=== PATIENT | female | born 1955 | race Caucasian/White ===

== ENCOUNTER 2016-08-10 20:03 | Inpatient (IN) | payer BC ==
[~2016-08-10] VITALS: Ht 172.7 cm; Wt 57.6 kg
[2016-08-10] MEDS ORDERED: CATAPRES0.1 MG ORAL (20:07)
[2016-08-10] MEDS ORDERED: Morphine Sulfate 4mg/ml Inj IVP ONE (20:30)
--- NOTE | 2016-08-10 20:56 | Emergency Room Report ---
History of Present Illness General Chief Complaint: Abdominal Pain Source: Patient Present Illness HPI Patient presents by paramedics for complaints of general weakness Patient reports that in May and July she had repeat UTIs She is seeing a kidney specialist she reports that her left kidneys not working well and has stents in the right kidney Patient reports that now over the past several days she was feeling very weak She felt like she had lower suprapubic abdominal pain as well And as she continued to deteriorate called paramedics she had some questionable mild chills Denies any flank pain at this time denies any vomiting or diarrhea Allergies: Coded Allergies: No Known Allergies (Unverified , 08/10/16) Patient History Past Medical History: see triage record Pertinent Family History: none Now: No Reviewed Nursing Documentation: PMH: Agreed, PSxH: Agreed Nursing Documentation-PMH Hx Hypertension: Yes Hx Cancer: Yes - Cervical CA Review of Systems All Other Systems: negative except mentioned in HPI Physical Exam Vital Signs Date Time Temp Pulse Resp B/P Pulse Ox O2 Delivery O2 Flow Rate FiO2 08/10/16 20:03 97.7 112 16 124/70 100 Room Air Sp02 EP Interpretation: reviewed, normal General Appearance: no apparent distress Head: normocephalic, atraumatic Eyes: bilateral eye EOMI, bilateral eye PERRL ENT: hearing grossly normal, TMs + canals normal, uvula midline, dry mucus membranes, other - Patient has poor dentition Neck: full range of motion, supple, no meningismus, no bony tend Respiratory: lungs clear, normal breath sounds, no rhonchi, no respiratory distress, no retraction, no accessory muscle use Cardiovascular #1: normal peripheral pulses, regular rate, rhythm, no edema, no gallop, no JVD, no murmur Gastrointestinal: normal bowel sounds, soft, no mass, no organomegaly, non- distended, no guarding, no hernia, no pulsatile mass, no rebound, tenderness - Over the suprapubic area Genitourinary: no CVA tenderness Musculoskeletal: normal inspection Neurologic: oriented x3, responsive, special education supervisor III-XII nml as tested, motor strength/ tone normal, sensory intact Psychiatric: mood/affect normal Skin: palpation normal, other - Patient appears poorly kept, fingernails appear dirty Lymphatic: normal inspection, no adenopathy Medical Decision Making Diagnostic Impression: Primary Impression: Sepsis Additional Impressions: UTI (urinary tract infection) Renal failure Hyperkalemia ER Course Patient is a fairly complex patient with multiple differential to consideration including but not limited to cardiac cardiopulmonary and vascular emergencies Patient also reports significant kidney disease cannot provide full specifics however she stated that she had stenting in the right kidney Patient's CAT scan is also abnormal with significant findings Patient's blood work is abnormal including abnormal kidney function infected urine this is extremity concerning patient initiated on antibiotics and requiring higher level of care inpatient admission Labs Test 08/10/16 20:47 08/11/16 09:15 08/12/16 06:56 08/13/16 06:20 White Blood Count 16.0 K/UL (4.8-10.8) 11.1 K/UL (4.8-10.8) 10.5 K/UL (4.8-10.8) Red Blood Count 2.48 M/UL (4.20-5.40) 1.78 M/UL (4.20-5.40) 3.33 M/UL (4.20-5.40) Hemoglobin 7.2 G/DL (12.0-16.0) 5.1 G/DL (12.0-16.0) 9.8 G/DL (12.0-16.0) Hematocrit 23.7 % (37.0-47.0) 16.7 % (37.0-47.0) 29.2 % (37.0-47.0) Mean Corpuscular Volume 96 FL (80-99) 94 FL (80-99) 88 FL (80-99) Mean Corpuscular Hemoglobin 28.9 PG (27.0-31.0) 28.6 PG (27.0-31.0) 29.4 PG (27.0-31.0) Mean Corpuscular Hemoglobin Concent 30.2 G/DL (32.0-36.0) 30.5 G/DL (32.0-36.0) 33.6 G/DL (32.0-36.0) Red Cell Distribution Width 15.6 % (11.6-14.8) 15.9 % (11.6-14.8) 14.9 % (11.6-14.8) Platelet Count 974 K/UL (150-450) 671 K/UL (150-450) 461 K/UL (150-450) Mean Platelet Volume 4.2 FL (6.5-10.1) 4.3 FL (6.5-10.1) 4.9 FL (6.5-10.1) Neutrophils (%) (Auto) % (45.0-75.0) % (45.0-75.0) % (45.0-75.0) Lymphocytes (%) (Auto) % (20.0-45.0) % (20.0-45.0) % (20.0-45.0) Monocytes (%) (Auto) % (1.0-10.0) % (1.0-10.0) % (1.0-10.0) Eosinophils (%) (Auto) % (0.0-3.0) % (0.0-3.0) % (0.0-3.0) Basophils (%) (Auto) % (0.0-2.0) % (0.0-2.0) % (0.0-2.0) Differential Total Cells Counted 100 100 100 Neutrophils % (Manual) 77 % (45-75) 91 % (45-75) 87 % (45-75) Lymphocytes % (Manual) 16 % (20-45) 4 % (20-45) 9 % (20-45) Monocytes % (Manual) 4 % (1-10) 4 % (1-10) 1 % (1-10) Eosinophils % (Manual) 0 % (0-3) 1 % (0-3) 0 % (0-3) Basophils % (Manual) 0 % (0-2) 0 % (0-2) 0 % (0-2) Band Neutrophils 3 % (0-8) 0 % (0-8) 3 % (0-8) Other Cell Type Pathologist comment Platelet Estimate Increased Increased Adequate Platelet Morphology Normal Normal Normal Polychromasia 1+ Hypochromasia 2+ 2+ 1+ Anisocytosis 2+ 1+ 1+ Prothrombin Time 11.0 SEC (9.30-11.50) 11.3 SEC (9.30-11.50) 11.5 SEC (9.30-11.50) Prothromb Time International Ratio 1.1 (0.9-1.1) 1.1 (0.9-1.1) 1.1 (0.9-1.1) Activated Partial Thromboplast Time 38 SEC (23-33) 36 SEC (23-33) 36 SEC (23-33) Urine Color Brown Urine Appearance Cloudy Urine pH 8 (4.5-8.0) Urine Specific [place] 1.010 (1.005-1.035) Urine Protein 3+ (NEGATIVE) Urine Glucose (UA) Negative (NEGATIVE) Urine Ketones 1+ (NEGATIVE) Urine Occult Blood 5+ (NEGATIVE) Urine Nitrite Negative (NEGATIVE) Urine Bilirubin Negative (NEGATIVE) Urine Urobilinogen Normal MG/DL (0.0-1.0) Urine Leukocyte Esterase 3+ (NEGATIVE) Urine RBC 15-20 /HPF (0 - 2) Urine WBC 10-15 /HPF (0 - 2) Urine Squamous Epithelial Cells None /LPF (NONE/OCC) Urine Bacteria Many /HPF (NONE) Sodium Level 128 mEQ/L (135-145) 134 mEQ/L (135-145) 138 mEQ/L (135-145) 137 mEQ/L (135-145) Potassium Level 5.5 mEQ/L (3.4-4.9) 3.7 mEQ/L (3.4-4.9) 3.0 mEQ/L (3.4-4.9) 2.5 mEQ/L (3.4-4.9) Chloride Level 90 mEQ/L (98-107) 97 mEQ/L (98-107) 101 mEQ/L (98-107) 97 mEQ/L (98-107) Carbon Dioxide Level 9 mEQ/L (20-30) 13 mEQ/L (20-30) 13 mEQ/L (20-30) 15 mEQ/L (20-30) Anion Gap 29 (5-15) 24 (5-15) 24 (5-15) 25 (5-15) Blood Urea Nitrogen 118 mg/dL (7-23) 107 mg/dL (7-23) 96 mg/dL (7-23) 94 mg/dL (7-23) Creatinine 6.6 mg/dL (0.5-0.9) 5.5 mg/dL (0.5-0.9) 5.6 mg/dL (0.5-0.9) 5.5 mg/dL (0.5-0.9) Estimat Glomerular Filtration Rate 6.5 mL/min (>60) 7.9 mL/min (>60) 7.8 mL/min (>60) 7.9 mL/min (>60) Glucose Level 134 mg/dL (74-106) 159 mg/dL (74-106) 111 mg/dL (74-106) 106 mg/dL (74-106) Lactic Acid Level 1.70 mmol/L (0.66-2.22) Calcium Level 9.6 mg/dL (8.6-10.2) 7.7 mg/dL (8.6-10.2) 7.9 mg/dL (8.6-10.2) 7.8 mg/dL (8.6-10.2) Total Bilirubin 0.3 mg/dL (0.0-1.2) 0.2 mg/dL (0.0-1.2) 0.5 mg/dL (0.0-1.2) 0.4 mg/dL (0.0-1.2) Aspartate Amino Transf (AST/SGOT) 7 U/L (5-40) 6 U/L (5-40) 8 U/L (5-40) 9 U/L (5-40) Alanine Aminotransferase (ALT/SGPT) 5 U/L (3-33) 5 U/L (3-33) 5 U/L (3-33) 5 U/L (3-33) Alkaline Phosphatase 100 U/L (35-104) 72 U/L (35-104) 70 U/L (35-104) 84 U/L (35-104) Total Creatine Kinase 14 U/L (26-140) Total Protein 8.1 g/dL (6.6-8.7) 5.9 g/dL (6.6-8.7) 6.0 g/dL (6.6-8.7) 5.7 g/dL (6.6-8.7) Albumin 3.5 g/dL (3.5-5.2) 2.6 g/dL (3.5-5.2) 2.5 g/dL (3.5-5.2) 2.3 g/dL (3.5-5.2) Globulin 4.6 g/dL 3.3 g/dL 3.5 g/dL 3.4 g/dL Albumin/Globulin Ratio 0.7 (1.0-2.7) 0.7 (1.0-2.7) 0.7 (1.0-2.7) 0.6 (1.0-2.7 ) Lipase 219 U/L (< 60) Erythrocyte Sedimentation Rate 153 MM/HR (0-30) Reticulocyte Count 2.4 % (0.0-2.0) Iron Level 26 ug/dL (37-145) Total Iron Binding Capacity 140 ug/dL (250-400) Percent Iron Saturation 19 % (15-50) Unsaturated Iron Binding 114 ug/dL (112-346) Ferritin 611 ng/mL (13-150) Lactate Dehydrogenase 100 U/L (135-230) Carcinoembryonic Antigen 4.9 ng/mL Vitamin B12 Level 1424 pg/mL (211-946) Folate 2.7 ng/mL (>3.0) Phosphorus Level 6.9 mg/dL (2.5-4.8) 7.2 mg/dL (2.5-4.8) Magnesium Level 1.8 mg/dL (1.7-2.5) Uric Acid 8.2 mg/dL (3.0-7.5) EKG Diagnostic Results Rate: normal Rhythm: NSR ST Segments: no acute changes Rhythm Strip Diag. Results EP Interpretation: yes Rate: 77 Rhythm: NSR, no PVC's, no ectopy Chest X-Ray Diagnostic Results EP Interpretation: Yes Findings: no consolidation, no effusion, no pneumothorax Number of Views: 1 CT/MRI/US Diagnostic Results CT/MRI/US Diagnostic Results : Impression CT abdomen pelvisImpression: Right nephroureteral stent in place. Moderate to severe right hydronephrosis, despite this, likely indicative of stent malfunction. Some renal parenchymal loss indicates that hydronephrosis is long-standing Severe left hydronephrosis and hydroureter. Point of obstruction of the distal ureter appears to be just proximal to the ureterovesical junction, etiology uncertain as no mass or stone is demonstrated. Hydronephrosis is obviously long-standing, as there is severe renal parenchymal loss. Bladder wall thickening and perivesical inflammatory change, suggestive of cystitis. If there has been prior radiation, and some or all of the pelvic inflammatory change could be due to such. Hepatic cysts incidentally noted Probable 16 mm right ovarian cyst Lumbar scoliotic deformity and considerable secondary degenerative change Pulmonary hyperinflation, suspect COPD progressed severe lumbar scoliotic deformity This agrees with the preliminary interpretation provided overnight by Dr. Johnson Last Vital Signs Date Time Temp Pulse Resp B/P Pulse Ox O2 Delivery O2 Flow Rate FiO2 08/10/16 20:03 97.7 112 16 124/70 100 Room Air Status: improved Disposition: ADMITTED INPATIENT Condition: Serious CHELA DOMINGUEZ D.O. Aug 10, 2016 20:55
[2016-08-10 21:13] LABS: APPEARANCE,URINE CLOUDY; KETONES,URINE 1+ (NEGATIVE); LEUKOCYTE ESTERASE ,URINE 3+ (NEGATIVE); NITRITE,URINE NEGATIVE (NEGATIVE); PH,URINE 8 (4.5-8.0); PROTEIN,URINE 3+ (NEGATIVE); UROBILINOGEN,URINE NORMAL MG/DL (0.0-1.0)
[2016-08-10 21:17] LABS: INR 1.1 (0.9-1.1)
[2016-08-10 21:26] LABS: MEAN CORPUSCULAR HEMOGLOBIN 28.9 PG (27.0-31.0); MEAN CORPUSCULAR HGB CONC 30.2 G/DL (32.0-36.0); MEAN CORPUSCULAR VOLUME 96 FL (80-99); MEAN PLATELET VOLUME 4.2 FL (6.5-10.1); PLATELET COUNT 974 K/UL (150-450); RED BLOOD COUNT 2.48 M/UL (4.20-5.40); RED CELL DISTRIBUTION WIDTH 15.6 % (11.6-14.8)
[2016-08-10 21:29] LABS: ALANINE AMINOTRANSFERASE 5 U/L (3-33); ALBUMIN/GLOBULIN RATIO 0.7 (1.0-2.7); ASPARTATE AMINO TRANSFERASE 7 U/L (5-40); CALCIUM 9.6 mg/dL (8.6-10.2); CHLORIDE 90 mEQ/L (98-107); CREATININE 6.6 mg/dL (0.5-0.9); GLOMERULAR FILTRATION RATE 6.5 mL/min (>60); HEMOLYSIS 0; LIPASE 219 U/L (< 60); POTASSIUM 5.5 mEQ/L (3.4-4.9); SODIUM 128 mEQ/L (135-145); TOTAL PROTEIN 8.1 g/dL (6.6-8.7)
[2016-08-10 21:35] LABS: BACTERIA,URINE MANY /HPF; RBC,URINE 15-20 /HPF (0 - 2)
[2016-08-10 21:50] LABS: ANION GAP 29 (5-15); CARBON DIOXIDE 9 mEQ/L (20-30)
[2016-08-10] MEDS ORDERED: Sodium Bicarbonate 8.4% 50ml Carp IV ONE (22:00)
[2016-08-10] MEDS ORDERED: cefTRIAXone 1 GM in NS 55 ML IVPB ONE (22:00)
[2016-08-10] MEDS ORDERED: Sodium Polystyrene Sulfonate 15gm Powder ORAL ONE (22:00)
[2016-08-10 22:21] LABS: ANISOCYTOSIS 2+; BAND NEUTROPHILS % (MANUAL) 3 % (0-8); HYPOCHROMASIA 2+; LYMPHOCYTES % (MANUAL) 16 % (20-45); NEUTROPHILS % (MANUAL) 77 % (45-75); PLATELET MORPHOLOGY NORMAL; TOTAL CELLS COUNTED 100
[2016-08-10 22:22] LABS: BASOPHILS % (MANUAL) 0 % (0-2); EOSINOPHILS % (MANUAL) 0 % (0-3); PLATELET ESTIMATE INCREASED; POLYCHROMASIA 1+
[2016-08-10 22:50] VITALS: BP 139/77
[2016-08-10 23:34] VITALS: BP 159/80
[2016-08-10] MEDS ORDERED: DuoNeb 0.5-3(2.5)mg/3ml neb HHN PRN (23:45)
[2016-08-10] MEDS ORDERED: Nitroglycerin Subl 0.4mg tab (Bottle Of 25) SL PRN (23:45)
[2016-08-10] MEDS ORDERED: Morphine Sulfate 2mg/ml Inj IVP PRN (23:45)
[2016-08-10] MEDS ORDERED: Miralax 17gm pkt ORAL PRN (23:45)
[2016-08-11] VITALS (8 sets, daily range): BP systolic 104–153; BP diastolic 67–84
[2016-08-11] MEDS ORDERED: Vancomycin 1 GM in D5W 275 ML IV SCH (00:30)
[2016-08-11] MEDS ORDERED: NKM (00:39)
[2016-08-11] MEDS ORDERED: Vancomycin 750mg Inj IVPB ONE (02:36)
[2016-08-11] MEDS ORDERED: Vancomycin 750mg/D5W 275ml IVPB ONE ×2 (03:00)
[2016-08-11] MEDS ORDERED: Cefepime HCl 500 MG in D5W 55 ML IV SCH ×2 (05:00→09:00)
[2016-08-11] MEDS ORDERED: Cefepime HCl 2 GM in D5W 110 ML IV SCH (09:00)
[2016-08-11] MEDS ORDERED: Heparin 5000 units/ml inj SUBQ SCH (09:00)
--- NOTE | 2016-08-11 10:20 | Diagnostic Imaging Report ---
Indication: Lower abdominal pain, pain with urination and weakness x1 week. History of cervical carcinoma Technique: Spiral acquisitions obtained through the abdomen and pelvis. No oral or IV contrast utilized, per urinary stone protocol. Multiplanar reconstructions were generated. Total dose length product 476 mGycm. CTDIvol(s) and mGy Comparison: None Findings: The bladder demonstrates wall thickening. There is infiltration of the perivesical fat. There is edema of the presacral fat. There is a right nephroureteral stent in place, proximal pigtail in the renal pelvis, distal pigtail within the bladder.. Despite this, there is moderate to severe right hydronephrosis. This is probably long-standing, as there is some thinning of the right renal cortex. Lack of IV contrast limits assessment of the renal parenchyma. This no gross renal parenchymal mass or cyst. No collecting system calculi are demonstrated. The left kidney is massively hydronephrotic and there is massive left hydroureter. The hydroureter extends to just above the ureterovesical junction, and the last 2 cm of the ureter is normal in caliber. A calcification projects adjacent to the left ureter, but this appears to be a calcification that is actually extra ureteral, probably a phlebolith. There is severe thinning of the left renal parenchyma. Although there is stated clinical history of cervical carcinoma, no definite cervical mass is demonstrated. The uterus is slightly globular in configuration. A cyst projects at the upper right corner of the uterine fundus, measures 16 mm, probably represents a small right ovarian cyst. The left ovary is not definitely demonstrated. Lack of IV contrast limits assessment of the other solid organs. The liver demonstrates multiple cysts. The gallbladder is mildly distended. No definite stones or wall thickening. No biliary ductal dilatation. The pancreas, spleen, adrenals are unremarkable. No mesenteric or retroperitoneal mass or adenopathy. There is marked lumbar dextroscoliotic deformity. There is considerable secondary degenerative change. There are degenerative changes of the bilateral hips The included lung bases appear hyperinflated. Impression: Right nephroureteral stent in place. Moderate to severe right hydronephrosis, despite this, likely indicative of stent malfunction. Some renal parenchymal loss indicates that hydronephrosis is long-standing Severe left hydronephrosis and hydroureter. Point of obstruction of the distal ureter appears to be just proximal to the ureterovesical junction, etiology uncertain as no mass or stone is demonstrated. Hydronephrosis is obviously long-standing, as there is severe renal parenchymal loss. Bladder wall thickening and perivesical inflammatory change, suggestive of cystitis. If there has been prior radiation, and some or all of the pelvic inflammatory change could be due to such. Hepatic cysts incidentally noted Probable 16 mm right ovarian cyst Lumbar scoliotic deformity and considerable secondary degenerative change Pulmonary hyperinflation, suspect COPD progressed severe lumbar scoliotic deformity This agrees with the preliminary interpretation provided overnight by Dr. Johnson The CT scanner at [facility] is accredited by the [employer] and the scans are performed using protocols designed to limit radiation exposure to as low as reasonably achievable to attain images of sufficient resolution adequate for diagnostic evaluation.
[2016-08-11 10:21] LABS: MEAN CORPUSCULAR HEMOGLOBIN 28.6 PG (27.0-31.0); MEAN CORPUSCULAR HGB CONC 30.5 G/DL (32.0-36.0); MEAN CORPUSCULAR VOLUME 94 FL (80-99); MEAN PLATELET VOLUME 4.3 FL (6.5-10.1); PLATELET COUNT 671 K/UL (150-450); RED BLOOD COUNT 1.78 M/UL (4.20-5.40); RED CELL DISTRIBUTION WIDTH 15.9 % (11.6-14.8); WHITE BLOOD COUNT 11.1 K/UL (4.8-10.8)
[2016-08-11 10:25] LABS: ALBUMIN/GLOBULIN RATIO 0.7 (1.0-2.7); CALCIUM 7.7 mg/dL (8.6-10.2); CREATININE 5.5 mg/dL (0.5-0.9); GLOMERULAR FILTRATION RATE 7.9 mL/min (>60); POTASSIUM 3.7 mEQ/L (3.4-4.9); TOTAL PROTEIN 5.9 g/dL (6.6-8.7)
[2016-08-11 10:26] LABS: INR 1.1 (0.9-1.1); PROTHROMBIN TIME 11.3 SEC (9.30-11.50)
--- NOTE | 2016-08-11 12:10 | Consultation ---
Consult Note Consult Note ID Dic # [id number] LISANDRO WEBER M.D. Aug 11, 2016 12:09
[2016-08-11 13:17] LABS: BAND NEUTROPHILS % (MANUAL) 0 % (0-8); BASOPHILS % (MANUAL) 0 % (0-2); EOSINOPHILS % (MANUAL) 1 % (0-3); LYMPHOCYTES % (MANUAL) 4 % (20-45); NEUTROPHILS % (MANUAL) 91 % (45-75); PLATELET ESTIMATE INCREASED; PLATELET MORPHOLOGY NORMAL; TOTAL CELLS COUNTED 100
[2016-08-11 13:18] LABS: ANISOCYTOSIS 1+
[2016-08-11 13:19] LABS: HYPOCHROMASIA 2+
--- NOTE | 2016-08-11 13:51 | Consultation ---
Consult Note Consult Note asked to eval for renal failure- Patient presents by paramedics for complaints of general weakness Patient reports that in May and July she had repeat UTIs She is seeing a kidney specialist she reports that her left kidneys not working well and has stents in the right kidney Patient reports that now over the past several days she was feeling very weak She felt like she had lower suprapubic abdominal pain as well And as she continued to deteriorate called paramedics she had some questionable mild chills Denies any flank pain at this time denies any vomiting or diarrhea patient's Doctors are all at . Assessment/Plan status: Renal failure- Likely acute on chronic- h/o Bilateral hydro, requiring stents by urology. Severe Anemia Metabolic acidosis Sugg: Transfuse- Uro eval- Kidney LANE monitor renal parameters Avoid nephrotoxics Uro eval CT abd-Pelvis Right nephroureteral stent in place. Moderate to severe right hydronephrosis, despite this, likely indicative of stent malfunction. Some renal parenchymal loss indicates that hydronephrosis is long-standing Severe left hydronephrosis and hydroureter. Point of obstruction of the distal ureter appears to be just proximal to the ureterovesical junction, etiology uncertain as no mass or stone is demonstrated. Hydronephrosis is obviously long- standing, as there is severe renal parenchymal loss. Bladder wall thickening and perivesical inflammatory change, suggestive of cystitis. If there has been prior radiation, and some or all of the pelvic inflammatory change could be due to such. Hepatic cysts incidentally noted Probable 16 mm right ovarian cyst Lumbar scoliotic deformity and considerable secondary degenerative change Pulmonary hyperinflation, suspect COPD progressed severe lumbar scoliotic deformity MINA JOSE Aug 11, 2016 13:51
[2016-08-11 14:05] LABS: RETICULOCYTE COUNT 2.4 % (0.0-2.0)
[2016-08-11 14:06] LABS: PATH BLOOD SMEAR/OMC SENT TO PATHOLOGIST
--- NOTE | 2016-08-11 15:14 | History and Physical ---
History of Present Illness General Date patient seen: Aug 11, 2016 Reason for Hospitalization: Abdominal Pain Present Illness HPI 60 year old female with hx of stents in the right kidney brought in by paramedics with CC of general weakness over the past several days. She felt like she had lower suprapubic abdominal pain as well She was diagnosed to have severe anemia and renal failure. Allergies: Coded Allergies: No Known Allergies (Unverified , 08/10/16) Medication History Scheduled No Known Medications* (NKM - No Known Medications*), 0 ., (Reported) Discontinued Medications Clonidine Hcl* (Catapres*), 0.1 MG ORAL EVERY 6 HOURS, (Reported) Discontinued Reason: Therapy completed Patient History Healthcare decision maker Resuscitation status Full Code Advanced Directive on File Review of Systems All Other Systems: negative except mentioned in HPI Physical Exam General Appearance: cachetic Lines, tubes and drains: peripheral, central line HEENT: normocephalic, atraumatic Neck: non-tender, normal alignment Respiratory/Chest: chest wall non-tender, lungs clear Cardiovascular/Chest: normal peripheral pulses, normal rate Abdomen: normal bowel sounds, non tender Genitourinary/Rectal: normal genital exam, normal rectal exam Last 24 Hour Vital Signs Date Time Temp Pulse Resp B/P Pulse Ox O2 Delivery O2 Flow Rate FiO2 08/11/16 12:13 98.2 105 18 109/67 99 Room Air 08/11/16 12:00 106/67 08/11/16 08:24 97.5 95 18 134/76 100 Room Air 08/11/16 06:30 100 19 Room Air 21 08/11/16 06:19 135/75 08/11/16 04:10 97.0 100 19 138/78 97 Room Air 08/11/16 04:00 98 08/11/16 02:00 97.8 102 14 142/72 99 Room Air 08/11/16 01:56 97.7 102 12 153/84 100 Room Air 08/11/16 01:55 97.7 102 12 153/84 100 Room Air 08/11/16 01:39 155/90 08/11/16 00:36 97.7 103 12 146/79 100 Room Air 08/10/16 23:34 97.7 105 16 159/80 93 Room Air 08/10/16 22:50 97.2 109 14 139/77 100 Room Air 08/10/16 20:03 97.7 112 16 124/70 100 Room Air Intake and Output 08/10/16 08/11/16 19:00 07:00 Intake Total 3375.000 ml Balance 3375.000 ml IV Total 3375.000 ml # Voids 2 # Bowel Movements 1 Laboratory Tests Test 08/10/16 20:47 08/11/16 09:15 White Blood Count 16.0 K/UL (4.8-10.8) H 11.1 K/UL (4.8-10.8) H Red Blood Count 2.48 M/UL (4.20-5.40) L 1.78 M/UL (4.20-5.40) L Hemoglobin 7.2 G/DL (12.0-16.0) L 5.1 G/DL (12.0-16.0) *L Hematocrit 23.7 % (37.0-47.0) L 16.7 % (37.0-47.0) L Mean Corpuscular Volume 96 FL (80-99) 94 FL (80-99) Mean Corpuscular Hemoglobin 28.9 PG (27.0-31.0) 28.6 PG (27.0-31.0) Mean Corpuscular Hemoglobin Concent 30.2 G/DL (32.0-36.0) L 30.5 G/DL (32.0-36.0) L Red Cell Distribution Width 15.6 % (11.6-14.8) H 15.9 % (11.6-14.8) H Platelet Count 974 K/UL (150-450) H 671 K/UL (150-450) H Mean Platelet Volume 4.2 FL (6.5-10.1) L 4.3 FL (6.5-10.1) L Neutrophils (%) (Auto) % (45.0-75.0) % (45.0-75.0) Lymphocytes (%) (Auto) % (20.0-45.0) % (20.0-45.0) Monocytes (%) (Auto) % (1.0-10.0) % (1.0-10.0) Eosinophils (%) (Auto) % (0.0-3.0) % (0.0-3.0) Basophils (%) (Auto) % (0.0-2.0) % (0.0-2.0) Differential Total Cells Counted 100 100 Neutrophils % (Manual) 77 % (45-75) H 91 % (45-75) H Lymphocytes % (Manual) 16 % (20-45) L 4 % (20-45) L Monocytes % (Manual) 4 % (1-10) 4 % (1-10) Eosinophils % (Manual) 0 % (0-3) 1 % (0-3) Basophils % (Manual) 0 % (0-2) 0 % (0-2) Band Neutrophils 3 % (0-8) 0 % (0-8) Platelet Estimate Increased H Increased H Platelet Morphology Normal Normal Polychromasia 1+ Hypochromasia 2+ 2+ Anisocytosis 2+ 1+ Prothrombin Time 11.0 SEC (9.30-11.50) 11.3 SEC (9.30-11.50) Prothromb Time International Ratio 1.1 (0.9-1.1) 1.1 (0.9-1.1) Activated Partial Thromboplast Time 38 SEC (23-33) H 36 SEC (23-33) H Urine Color Brown Urine Appearance Cloudy Urine pH 8 (4.5-8.0) Urine Specific [place] 1.010 (1.005-1.035) Urine Protein 3+ (NEGATIVE) H Urine Glucose (UA) Negative (NEGATIVE) Urine Ketones 1+ (NEGATIVE) H Urine Occult Blood 5+ (NEGATIVE) H Urine Nitrite Negative (NEGATIVE) Urine Bilirubin Negative (NEGATIVE) Urine Urobilinogen Normal MG/DL (0.0-1.0) Urine Leukocyte Esterase 3+ (NEGATIVE) H Urine RBC 15-20 /HPF (0 - 2) H Urine WBC 10-15 /HPF (0 - 2) H Urine Squamous Epithelial Cells None /LPF (NONE/OCC) Urine Bacteria Many /HPF (NONE) H Sodium Level 128 mEQ/L (135-145) L 134 mEQ/L (135-145) L Potassium Level 5.5 mEQ/L (3.4-4.9) H 3.7 mEQ/L (3.4-4.9) Chloride Level 90 mEQ/L (98-107) L 97 mEQ/L (98-107) L Carbon Dioxide Level 9 mEQ/L (20-30) *L 13 mEQ/L (20-30) L Anion Gap 29 (5-15) H 24 (5-15) H Blood Urea Nitrogen 118 mg/dL (7-23) H 107 mg/dL (7-23) H Creatinine 6.6 mg/dL (0.5-0.9) H 5.5 mg/dL (0.5-0.9) H Estimat Glomerular Filtration Rate 6.5 mL/min (>60) 7.9 mL/min (>60) Glucose Level 134 mg/dL (74-106) H 159 mg/dL (74-106) H Lactic Acid Level 1.70 mmol/L (0.66-2.22) Calcium Level 9.6 mg/dL (8.6-10.2) 7.7 mg/dL (8.6-10.2) L Total Bilirubin 0.3 mg/dL (0.0-1.2) 0.2 mg/dL (0.0-1.2) Aspartate Amino Transf (AST/SGOT) 7 U/L (5-40) 6 U/L (5-40) Alanine Aminotransferase (ALT/SGPT) 5 U/L (3-33) 5 U/L (3-33) Alkaline Phosphatase 100 U/L (35-104) 72 U/L (35-104) Total Creatine Kinase 14 U/L (26-140) L Total Protein 8.1 g/dL (6.6-8.7) 5.9 g/dL (6.6-8.7) L Albumin 3.5 g/dL (3.5-5.2) 2.6 g/dL (3.5-5.2) L Globulin 4.6 g/dL 3.3 g/dL Albumin/Globulin Ratio 0.7 (1.0-2.7) L 0.7 (1.0-2.7) L Lipase 219 U/L (< 60) H Erythrocyte Sedimentation Rate 153 MM/HR (0-30) H Reticulocyte Count 2.4 % (0.0-2.0) H Iron Level 26 ug/dL (37-145) L Total Iron Binding Capacity 140 ug/dL (250-400) L Percent Iron Saturation 19 % (15-50) Unsaturated Iron Binding 114 ug/dL (112-346) Ferritin 611 ng/mL (13-150) H Lactate Dehydrogenase 100 U/L (135-230) L Carcinoembryonic Antigen 4.9 ng/mL H Vitamin B12 Level 1424 pg/mL (211-946) H Folate Pending Microbiology Date/Time Source Procedure Growth Status 08/10/16 20:47 Urine,Clean Catch Urine Culture - Preliminary Resulted Height (Feet): 5 Height (Inches): 8.00 Weight (Pounds): 127 Medications Current Medications Medications (Trade) Dose Ordered Sig/[place] Route PRN Reason Start Time Stop Time Status Last Admin Dose Admin Acetaminophen (Tylenol) 650 mg Q4H PRN ORAL fever 08/10/16 23:45 09/09/16 23:44 Albuterol/ Ipratropium (DuoNeb 0.5-3(2.5)mg/3ml) 3 ml Q4H PRN HHN Shortness of Breath 08/10/16 23:45 08/15/16 23:44 Cefepime HCl 500 mg/Dextrose 55 ml @ 110 mls/hr Q24H IV 08/11/16 09:00 08/18/16 08:59 08/11/16 08:35 Docusate Sodium (Colace) 100 mg TID ORAL 08/11/16 14:00 09/10/16 13:59 UNV Heparin Sodium (Porcine) (Heparin 5000 units/ml) 5,000 units EVERY 12 HOURS SUBQ 08/11/16 09:00 09/10/16 08:59 08/11/16 08:35 Morphine Sulfate (Morphine Sulfate) 2 mg Q4H PRN IVP Moderate Pain (Pain Scale 4-6) 08/10/16 23:45 08/17/16 23:44 08/11/16 01:39 Nitroglycerin 0.4 mg 0.4 mg Q5M PRN SL Prn Chest Pain 08/10/16 23:45 09/09/16 23:44 Ondansetron HCl (Zofran) 4 mg Q6H PRN IVP Nausea & Vomiting 08/10/16 23:45 09/09/16 23:44 Pantoprazole (Protonix) 40 mg BID ORAL 08/11/16 18:00 09/10/16 17:59 UNV Polyethylene Glycol (Miralax) 17 gm DAILYPRN PRN ORAL Constipation 08/10/16 23:45 09/09/16 23:44 Sodium Chloride (Sodium Chloride 1000ml bag) 1,000 ml @ 75 mls/hr [id number] IVLG 08/12/16 02:00 09/11/16 01:59 UNV Temazepam (Restoril) 15 mg HSPRN PRN ORAL Insomnia 08/10/16 23:45 08/17/16 23:44 Assessment/Plan Problem List: (1) Symptomatic anemia ICD Codes: D64.9 - Anemia, unspecified SNOMED: 332258384 (2) ATN (acute tubular necrosis) ICD Codes: N17.0 - Acute kidney failure with tubular necrosis SNOMED: 43755876 (3) Hydronephrosis ICD Codes: N13.30 - Unspecified hydronephrosis SNOMED: 17615521 Assessment/Plan PrBC IV fluids Urology and renal evaluation ABA GOMEZ Aug 11, 2016 15:14
[2016-08-11] MEDS ORDERED: Docusate 100mg cap ORAL SCH (18:00)
--- NOTE | 2016-08-11 19:47 | Consultation ---
DATE OF CONSULTATION: INFECTIOUS DISEASE CONSULTATION CONSULTING PHYSICIAN: James Jim M.D. REQUESTING PHYSICIAN: Gorge Sanchez M.D. REASON FOR CONSULTATION: Evaluation of the patient for recurrent urinary tract infection. HISTORY OF PRESENT ILLNESS: The patient is a pleasant 60-year-old female with multiple medical problems, who was admitted to this medical center for recurrent dysuria and suprapubic pain happening in the last 10 days. The patient took two courses of oral antibiotics without significant improvement. Infectious Disease consultation has been requested for further evaluation of the patient's antibiotic management. PAST MEDICAL HISTORY: 1. Hypertension. 2. History of cervical cancer, status post chemo and radiation. 3. History of recurrent urinary tract infection. 4. History of right kidney stent placement. MEDICATIONS: Intravenous vancomycin and cefepime. ALLERGIES: No known drug allergies. SOCIAL HISTORY: No history of alcohol or drug abuse. FAMILY HISTORY: Noncontributory. REVIEW OF SYSTEMS: A 10-point review was done and except what is mentioned has been negative. PHYSICAL EXAMINATION: VITAL SIGNS: Pulse is 60, respiratory rate 18, and blood pressure 124/76. HEENT: Mild pale conjunctiva. No icterus. NECK: No lymphadenopathy. CHEST: Coarse breathing sounds. HEART: S1 and S2. ABDOMEN: Soft. EXTREMITY: No cyanosis. NEUROLOGIC: Awake. LABORATORY DATA: White blood cells 11, hemoglobin 5.1, and platelets 671,000. UA, 10 to 15 white blood cells. BUN 7 and creatinine 5.5. AST and ALT are unremarkable. Alkaline phosphatase 72. LDH 100. CT of the abdomen shows a right nephroureteral stent placement with severe right hydronephrosis suggestive of stent malfunction, also severe left hydronephrosis and hydroureter, and bladder wall thickening suggestive of cystitis. ASSESSMENT: The patient is a 60-year-old female with multiple medical problems, who has been admitted to this medical center, who was found to have anemia. The patient complained of increased urination and dysuria suggestive of urinary tract infection and also pyelonephritis is in differential especially in the view of the patient having bilateral hydronephrosis. PLAN: 1. We will continue the patient on cefepime, hold intravenous vancomycin. 2. Monitor cultures (blood and urine). 3. Monitor CBC. 4. Monitor BMP. 5. Urology consultation for further evaluation and intervention. 6. Blood transfusion as needed. Thank you, Dr. Sanchez, for allowing me to participate in the care of this patient. I will follow the patient with you during this hospitalization. James Jim M.D. DR: KIKE JOB#: [id number] CC:
[2016-08-11] MEDS ORDERED: Nitroglycerin Subl 0.4mg tab (Bottle Of 25) SL PRN (20:30)
[2016-08-11] MEDS ORDERED: Morphine Sulfate 2mg/ml Inj IVP PRN (22:00)
[2016-08-11] MEDS ORDERED: DuoNeb 0.5-3(2.5)mg/3ml neb HHN PRN (22:00)
[2016-08-11] MEDS: Heparin 5000 units/ml inj SUBQ SCH ×2 (23:00→23:41)
[2016-08-12] VITALS: BP 111/77
--- NOTE | 2016-08-12 03:57 | Consultation ---
DATE OF CONSULTATION: 08/11/2016 UROLOGY CONSULTATION CONSULTING PHYSICIAN: Dave Louis M.D. ATTENDING PHYSICIAN: Gorge Sanchez M.D. REFERRING PHYSICIAN: Gorge Sanchez M.D. CHIEF COMPLAINT/HISTORY OF PRESENT ILLNESS: I was asked by Dr. Sanchez to evaluate this very pleasant 60-year-old female regarding a history of bilateral hydronephrosis and right ureteral stent secondary to same. Briefly, the patient has a history of cervical cancer, for which she underwent chemotherapy and radiation approximately 3 to 4 years ago. She denies any history of urologic issues or hydronephrosis prior to that time. It appears that after her radiation treatment the patient felt strictures in her ureters and this led to hydronephrosis. The patient has had long-standing hydronephrosis on both sides with left kidney cortical loss secondary to same. She is followed by Dr. Moon at [facility] for management of the same. Initially she had bilateral ureteral stents placed, but eventually access in the left side was lost. The right stent has been changed regularly by Dr. Moon, last time was in the last 3 months or so. Given the above history, I was asked to evaluate the patient. PAST MEDICAL HISTORY: 1. Hypertension. 2. Cervical cancer, status post chemotherapy and radiation therapy. 3. Bilateral hydronephrosis, possibly secondary to radiation for cervical cancer. 4. Recurrent urinary tract infections. MEDICATIONS: Please see chart for current medications and administration details. Briefly, the patient's antibiotic coverage include cefepime and vancomycin. ALLERGIES: No known drug allergies. SOCIAL HISTORY: Unremarkable tobacco, alcohol, or drug use. FAMILY HISTORY: Noncontributory. REVIEW OF SYSTEMS: A 12-system review of systems was essentially unremarkable outside of what is described above. PHYSICAL EXAMINATION: GENERAL: The patient is an older female, awake, alert, and oriented x4, in no obvious distress. HEENT: NCAT. Extraocular muscles intact. Oropharynx clear. NECK: Supple. CHEST: Within normal limits. ABDOMEN: Soft, flat, nontender, and nondistended. EXTREMITIES: Warm and well perfused. No cyanosis, clubbing, or edema. NEUROLOGIC: Grossly nonfocal. LABORATORY DATA: White blood cell count 11.1, down from 16 on admission; hematocrit 16.7; and platelets 671,000. PT 11.3, INR 1.1, and PTT 36. Sodium 134, potassium 3.7, chloride 97, bicarbonate 13, BUN 107, and creatinine 5.5, down from 6.6 on admission. Glucose 159. Calcium 7.7. LFTs within normal limits. CEA 4.9. Urinalysis showed specific gravity 1.010 and pH 8.0. Dip test notable for 3+ protein, 1+ ketones, 5+ occult blood, and 3+ leukocyte esterase. Microanalysis with 15 to 20 red blood cells per high-power field, 10 to 15 white blood cells per high-power field, and many bacteria seen. Urine culture pending. DIAGNOSTIC IMAGING: CT scan of the abdomen and pelvis without contrast reveals a right nephroureteral stent in place. There is [id number] right hydronephrosis despite the same. This is probably longstanding, as there is some thinning of the right renal cortex. There is no gross renal cortical mass or cyst. No collecting system stones are identified. The left kidney is massively hydronephrotic and there is massive left hydroureter extending to just above the UVJ with the last 2 cm of ureter being normal in caliber, calcification projects adjacent to left ureter, but appears to be outside of the ureter, likely a phlebolith. There is severe thinning of the left renal parenchyma. No cervical mass is seen. ASSESSMENT AND PLAN: In summary, the patient is a 60-year-old female with a history of cervical cancer, status post radiation therapy for the same. Her course appears to have been complicated by bilateral ureteral strictures with hydroureteronephrosis secondary to same. This appears to be longstanding or have another etiology, which is longstanding, as there is significant parenchymal loss on the left side and some thinning of the parenchyma on the right side as well. She has previously been managed with double-J stents on both sides, but access to the left side was lost and given the severe thinning of the tissue decision was made not to reinsert the same. Right kidney is still managed with a double-J stent, which appears to be in good position. There is no hydronephrosis on that side as can be seen with a ureteral stent and also from long-standing obstruction even after placement of the stent. The patient's creatinine is 5.5, down from 6.6 on admission. Her white blood cell count is decreased. There is evidence of urinary tract infection on urinalysis and a culture is pending. The patient is on excellent antibiotic coverage with cefepime and vancomycin. Physical exam is essentially unremarkable. I discussed these findings at length with the patient at bedside. I offered to exchange her double-J stent on the right side and attempt placement of a left-sided stent, but she opted for the same at this time. She is regularly followed at [facility] where all her doctors and medical care are given. She would prefer to receive treatment for her urinary tract infection and be discharged, and follow up there for further management of her cervical cancer, hydronephrosis, ureteral stent, etc. If the patient ends up staying for more than a day or two, we will reconsider exchange of double-J stent and attempted left-sided procedure if possible. She verbalized understanding and agreed with this plan. Thank you for allowing me to participate in the care of this interesting patient. Please do not hesitate to contact me with any questions that you may further have regarding her care. I will be happy to see her with you as needed. Dave Louis M.D. DR: ECHO JOB#: [id number] CC:
[2016-08-12 04:00] VITALS: BP 121/77
[2016-08-12 07:35] LABS: MEAN CORPUSCULAR HEMOGLOBIN 29.4 PG (27.0-31.0); MEAN CORPUSCULAR HGB CONC 33.6 G/DL (32.0-36.0); MEAN CORPUSCULAR VOLUME 88 FL (80-99); MEAN PLATELET VOLUME 4.9 FL (6.5-10.1); PLATELET COUNT 461 K/UL (150-450); RED BLOOD COUNT 3.33 M/UL (4.20-5.40); RED CELL DISTRIBUTION WIDTH 14.9 % (11.6-14.8); WHITE BLOOD COUNT 10.5 K/UL (4.8-10.8)
[2016-08-12 07:47] LABS: ALBUMIN/GLOBULIN RATIO 0.7 (1.0-2.7); CALCIUM 7.9 mg/dL (8.6-10.2); CREATININE 5.6 mg/dL (0.5-0.9); GLOMERULAR FILTRATION RATE 7.8 mL/min (>60); MAGNESIUM 1.8 mg/dL (1.7-2.5); PHOSPHORUS 6.9 mg/dL (2.5-4.8)
[2016-08-12 07:54] LABS: INR 1.1 (0.9-1.1); PROTHROMBIN TIME 11.5 SEC (9.30-11.50)
[2016-08-12 08:40] VITALS: BP 99/68
[2016-08-12] MEDS: Docusate 100mg tablet ORAL SCH ×3 (09:50→18:26)
[2016-08-12] MEDS: Heparin 5000 units/ml inj SUBQ SCH ×2 (09:52→21:05)
[2016-08-12] MEDS: Cefepime HCl 500 MG in D5W 55 ML IV SCH (09:54)
--- NOTE | 2016-08-12 11:31 | General Progress Note ---
Assessment/Plan Assessment/Plan status; Renal failure- Likely acute on chronic- h/o Bilateral hydro, requiring stents by urology. history of cervical cancer, status post radiation therapy Severe Anemia Metabolic acidosis UTI Plan: Transfused Uro eval- appreciated Kidney LANE- pending monitor renal parameters Avoid nephrotoxics Bicitra Phos binders renal diet antibiotics Subjective ROS Limited/Unobtainable: No Constitutional: Reports: malaise, other - feels stronger after transfusion Allergies: Coded Allergies: No Known Allergies (Unverified , 08/10/16) Objective Last 24 Hour Vital Signs Date Time Temp Pulse Resp B/P Pulse Ox O2 Delivery O2 Flow Rate FiO2 08/12/16 08:40 98.6 88 19 99/68 98 Room Air 08/12/16 07:38 80 16 Room Air 21 08/12/16 04:00 97.7 82 18 121/77 97 Room Air 08/12/16 00:00 96.8 89 18 111/77 97 Room Air 08/11/16 23:42 85 16 Room Air 21 08/11/16 23:32 83 16 Room Air 21 08/11/16 20:00 98.2 60 20 104/72 98 Room Air 08/11/16 16:00 92 08/11/16 16:00 99.1 95 18 118/74 98 Room Air 08/11/16 12:13 98.2 105 18 109/67 99 Room Air 08/11/16 12:00 106/67 08/11/16 12:00 96 Intake and Output 08/11/16 08/12/16 19:00 07:00 Intake Total 245 ml 840 ml Balance 245 ml 840 ml Intake Oral 245 ml 280 ml IV Total 560 ml # Voids 1 Laboratory Tests 08/12/16 06:56: White Blood Count 10.5, Red Blood Count 3.33L, Hemoglobin 9.8#L, Hematocrit 29.2 #L, Mean Corpuscular Volume 88, Mean Corpuscular Hemoglobin 29.4, Mean Corpuscular Hemoglobin Concent 33.6, Red Cell Distribution Width 14.9H, Platelet Count 461H, Mean Platelet Volume 4.9L, Neutrophils (%) (Auto) , Lymphocytes (%) (Auto) , Monocytes (%) (Auto) , Eosinophils (%) (Auto) , Basophils (%) (Auto) , Neutrophils % (Manual) [Pending], Lymphocytes % (Manual) [Pending], Platelet Estimate [Pending], Platelet Morphology [Pending], Prothrombin Time 11.5, Prothromb Time International Ratio 1.1, Activated Partial Thromboplast Time 36H, Sodium Level 138, Potassium Level 3.0L, Chloride Level 101, Carbon Dioxide Level 13L, Anion Gap 24H, Blood Urea Nitrogen 96H, Creatinine 5.6H, Estimat Glomerular Filtration Rate 7.8, Glucose Level 111H, Calcium Level 7.9L, Phosphorus Level 6.9H, Magnesium Level 1.8, Total Bilirubin 0.5, Aspartate Amino Transf (AST/SGOT) 8, Alanine Aminotransferase (ALT/SGPT) 5 , Alkaline Phosphatase 70, Total Protein 6.0L, Albumin 2.5L, Globulin 3.5, Albumin/Globulin Ratio 0.7L Height (Feet): 5 Height (Inches): 8.00 Weight (Pounds): 127 General Appearance: no apparent distress Cardiovascular: tachycardia Abdomen: distended - , lower abdomen Objective other PE not changed MINA JOSE Aug 12, 2016 11:31
[2016-08-12 11:42] LABS: ANISOCYTOSIS 1+; BAND NEUTROPHILS % (MANUAL) 3 % (0-8); BASOPHILS % (MANUAL) 0 % (0-2); EOSINOPHILS % (MANUAL) 0 % (0-3); HYPOCHROMASIA 1+; LYMPHOCYTES % (MANUAL) 9 % (20-45); NEUTROPHILS % (MANUAL) 87 % (45-75); PLATELET ESTIMATE ADEQUATE; PLATELET MORPHOLOGY NORMAL; TOTAL CELLS COUNTED 100
[2016-08-12] MEDS: Sodium Citrate 30ml ORAL SCH ×3 (12:04→21:01)
[2016-08-12 12:50] VITALS: BP 113/76
[2016-08-12 13:51] LABS: OTHERS PATHOLOGIST COMMENT
[2016-08-12 16:02] VITALS: BP 134/77
[2016-08-12] MEDS ORDERED: Docusate 100mg tablet ORAL SCH (19:00)
[2016-08-12 20:00] VITALS: BP 110/69
[2016-08-12] MEDS: Morphine Sulfate 4mg/ml Inj IVP PRN (20:08)
--- NOTE | 2016-08-12 21:02 | Infectious Diseases Prog Note ---
Assessment/Plan Assessment/Plan A: The patient is a pleasant 60-year-old Leukocytosis improving Hx of recurrent urinary tract infection UCx : GPC ( ro VRE ) Dysuria and suprapubic pain CT : severe right hydronephrosis suggestive of stent malfunction, severe left hydronephrosis and hydroureter, and bladder wall thickening suggestive of cystitis. HTN History of cervical cancer status post chemo and radiation History of right kidney stent placement PLAN: cont pt on cefepime d # 2 ,add Zyvox d# 1 Monitor cultures (blood and urine). Monitor CBC. Monitor BMP. Urology consultation for further evaluation and intervention. Blood transfusion as needed. Subjective Constitutional: Denies: anorexia, chills, drenching sweats, fatigue, fever, no symptoms, other Allergies: Coded Allergies: No Known Allergies (Unverified , 08/10/16) Objective Vital Signs Last 24 Hour Vital Signs Date Time Temp Pulse Resp B/P Pulse Ox O2 Delivery O2 Flow Rate FiO2 08/12/16 19:45 87 16 Room Air 21 08/12/16 16:02 97.7 101 20 134/77 97 Room Air 08/12/16 12:50 98.1 89 20 113/76 98 Room Air 08/12/16 08:40 98.6 88 19 99/68 98 Room Air 08/12/16 07:38 80 16 Room Air 21 08/12/16 04:00 97.7 82 18 121/77 97 Room Air 08/12/16 00:00 96.8 89 18 111/77 97 Room Air 08/11/16 23:42 85 16 Room Air 21 08/11/16 23:32 83 16 Room Air 21 Height (Feet): 5 Height (Inches): 8.00 Weight (Pounds): 127 HEENT: atraumatic Respiratory/Chest: normal breath sounds Cardiovascular: regular rhythm Abdomen: soft, non tender Microbiology Date/Time Source Procedure Growth Status 08/10/16 20:47 Blood Blood Culture - Preliminary NO GROWTH AFTER 24 HOURS Resulted 08/10/16 20:37 Blood Blood Culture - Preliminary NO GROWTH AFTER 24 HOURS Resulted 08/10/16 20:47 Urine,Clean Catch Urine Culture - Preliminary Gram Positive Cocci Resulted Laboratory Tests Test 08/12/16 06:56 White Blood Count 10.5 K/UL (4.8-10.8) Red Blood Count 3.33 M/UL (4.20-5.40) L Hemoglobin 9.8 G/DL (12.0-16.0) #L Hematocrit 29.2 % (37.0-47.0) #L Mean Corpuscular Volume 88 FL (80-99) Mean Corpuscular Hemoglobin 29.4 PG (27.0-31.0) Mean Corpuscular Hemoglobin Concent 33.6 G/DL (32.0-36.0) Red Cell Distribution Width 14.9 % (11.6-14.8) H Platelet Count 461 K/UL (150-450) H Mean Platelet Volume 4.9 FL (6.5-10.1) L Neutrophils (%) (Auto) % (45.0-75.0) Lymphocytes (%) (Auto) % (20.0-45.0) Monocytes (%) (Auto) % (1.0-10.0) Eosinophils (%) (Auto) % (0.0-3.0) Basophils (%) (Auto) % (0.0-2.0) Differential Total Cells Counted 100 Neutrophils % (Manual) 87 % (45-75) H Lymphocytes % (Manual) 9 % (20-45) L Monocytes % (Manual) 1 % (1-10) Eosinophils % (Manual) 0 % (0-3) Basophils % (Manual) 0 % (0-2) Band Neutrophils 3 % (0-8) Platelet Estimate Adequate Platelet Morphology Normal Hypochromasia 1+ Anisocytosis 1+ Prothrombin Time 11.5 SEC (9.30-11.50) Prothromb Time International Ratio 1.1 (0.9-1.1) Activated Partial Thromboplast Time 36 SEC (23-33) H Sodium Level 138 mEQ/L (135-145) Potassium Level 3.0 mEQ/L (3.4-4.9) L Chloride Level 101 mEQ/L (98-107) Carbon Dioxide Level 13 mEQ/L (20-30) L Anion Gap 24 (5-15) H Blood Urea Nitrogen 96 mg/dL (7-23) H Creatinine 5.6 mg/dL (0.5-0.9) H Estimat Glomerular Filtration Rate 7.8 mL/min (>60) Glucose Level 111 mg/dL (74-106) H Calcium Level 7.9 mg/dL (8.6-10.2) L Phosphorus Level 6.9 mg/dL (2.5-4.8) H Magnesium Level 1.8 mg/dL (1.7-2.5) Total Bilirubin 0.5 mg/dL (0.0-1.2) Aspartate Amino Transf (AST/SGOT) 8 U/L (5-40) Alanine Aminotransferase (ALT/SGPT) 5 U/L (3-33) Alkaline Phosphatase 70 U/L (35-104) Total Protein 6.0 g/dL (6.6-8.7) L Albumin 2.5 g/dL (3.5-5.2) L Globulin 3.5 g/dL Albumin/Globulin Ratio 0.7 (1.0-2.7) L Current Medications Medications (Trade) Dose Ordered Sig/Heaven Route PRN Reason Start Time Stop Time Status Last Admin Dose Admin Acetaminophen (Tylenol) 650 mg Q4H PRN ORAL fever 08/11/16 22:00 09/10/16 21:59 Albuterol/ Ipratropium (DuoNeb 0.5-3(2.5)mg/3ml) 3 ml Q4H PRN HHN Shortness of Breath 08/11/16 22:00 08/16/16 21:59 Cefepime HCl 500 mg/Dextrose 55 ml @ 110 mls/hr Q24H IV 08/12/16 09:00 08/17/16 08:59 08/12/16 09:54 Docusate Sodium (Colace) 100 mg TID ORAL 08/12/16 09:00 09/11/16 08:59 08/12/16 18:26 Heparin Sodium (Porcine) (Heparin 5000 units/ml) 5,000 units EVERY 12 HOURS SUBQ 08/11/16 23:00 09/10/16 22:59 08/12/16 09:52 Morphine Sulfate (Morphine Sulfate) 4 mg Q4H PRN IVP SEVERE PAIN 08/12/16 17:00 08/19/16 16:59 08/12/16 20:08 Nitroglycerin (Ntg) 0.4 mg Q5MIN X 3 DOSES PRN SL Prn Chest Pain 08/11/16 20:30 09/10/16 20:29 Ondansetron HCl (Zofran) 4 mg Q6H PRN IVP Nausea & Vomiting 08/11/16 22:00 09/10/16 21:59 Pantoprazole (Protonix) 40 mg BID ORAL 08/12/16 09:00 09/11/16 08:59 08/12/16 18:26 Polyethylene Glycol (Miralax) 17 gm DAILYPRN PRN ORAL Constipation 08/11/16 22:00 09/10/16 21:59 Sevelamer Carbonate (Renvela) 800 mg THREE TIMES A DAY ORAL 08/12/16 13:00 09/11/16 12:59 08/12/16 18:26 Sodium Chloride (Sodium Chloride 1000ml bag) 1,000 ml @ 75 mls/hr [id number] IVLG 08/11/16 22:00 09/10/16 21:59 08/12/16 18:26 Sodium Citrate (Bicitra) 30 ml QID ORAL 08/12/16 13:00 09/11/16 12:59 08/12/16 18:26 Temazepam (Restoril) 15 mg HSPRN PRN ORAL Insomnia 08/11/16 22:00 08/18/16 21:59 LISANDRO WEBER M.D. Aug 12, 2016 21:02
--- NOTE | 2016-08-12 23:55 | Pulmonology Progress Note ---
Assessment/Plan Problems: (1) Symptomatic anemia (2) ATN (acute tubular necrosis) (3) Hydronephrosis Assessment/Plan PrBC IV fluids Urology and renal evaluation Subjective ROS Limited/Unobtainable: No Constitutional: Reports: anorexia, fatigue Neurologic: Reports: confusion, weakness Allergies: Coded Allergies: No Known Allergies (Unverified , 08/10/16) Objective Last 24 Hour Vital Signs Date Time Temp Pulse Resp B/P Pulse Ox O2 Delivery O2 Flow Rate FiO2 08/12/16 20:00 97.5 85 18 110/69 97 Room Air 08/12/16 19:45 87 16 Room Air 21 08/12/16 16:02 97.7 101 20 134/77 97 Room Air 08/12/16 12:50 98.1 89 20 113/76 98 Room Air 08/12/16 08:40 98.6 88 19 99/68 98 Room Air 08/12/16 07:38 80 16 Room Air 21 08/12/16 04:00 97.7 82 18 121/77 97 Room Air 08/12/16 00:00 96.8 89 18 111/77 97 Room Air Intake and Output 08/11/16 08/12/16 19:00 07:00 Intake Total 245 ml 840 ml Balance 245 ml 840 ml Intake Oral 245 ml 280 ml IV Total 560 ml # Voids 1 General Appearance: no acute distress HEENT: normocephalic, atraumatic, anicteric, PERRL Respiratory/Chest: chest wall non-tender, chest wall tender, decreased breath sounds, accessory muscle use Breasts: no masses Cardiovascular: normal peripheral pulses, normal rate, regular rhythm, no JVD Abdomen: normal bowel sounds, soft, non tender, no organomegaly Genitourinary: normal external genitalia Extremities: no cyanosis Skin: no rash 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, no motor/sensory deficits Microbiology Date/Time Source Procedure Growth Status 08/10/16 20:47 Blood Blood Culture - Preliminary NO GROWTH AFTER 24 HOURS Resulted 08/10/16 20:37 Blood Blood Culture - Preliminary NO GROWTH AFTER 24 HOURS Resulted 08/10/16 20:47 Urine,Clean Catch Urine Culture - Preliminary Gram Positive Cocci Resulted Laboratory Tests 08/12/16 06:56: White Blood Count 10.5, Red Blood Count 3.33L, Hemoglobin 9.8#L, Hematocrit 29.2 #L, Mean Corpuscular Volume 88, Mean Corpuscular Hemoglobin 29.4, Mean Corpuscular Hemoglobin Concent 33.6, Red Cell Distribution Width 14.9H, Platelet Count 461H, Mean Platelet Volume 4.9L, Neutrophils (%) (Auto) , Lymphocytes (%) (Auto) , Monocytes (%) (Auto) , Eosinophils (%) (Auto) , Basophils (%) (Auto) , Differential Total Cells Counted 100, Neutrophils % ( Manual) 87H, Lymphocytes % (Manual) 9L, Monocytes % (Manual) 1, Eosinophils % ( Manual) 0, Basophils % (Manual) 0, Band Neutrophils 3, Platelet Estimate Adequate, Platelet Morphology Normal, Hypochromasia 1+, Anisocytosis 1+, Prothrombin Time 11.5, Prothromb Time International Ratio 1.1, Activated Partial Thromboplast Time 36H, Sodium Level 138, Potassium Level 3.0L, Chloride Level 101, Carbon Dioxide Level 13L, Anion Gap 24H, Blood Urea Nitrogen 96H, Creatinine 5.6H, Estimat Glomerular Filtration Rate 7.8, Glucose Level 111H, Calcium Level 7.9L, Phosphorus Level 6.9H, Magnesium Level 1.8, Total Bilirubin 0.5, Aspartate Amino Transf (AST/SGOT) 8, Alanine Aminotransferase (ALT/SGPT) 5 , Alkaline Phosphatase 70, Total Protein 6.0L, Albumin 2.5L, Globulin 3.5, Albumin/Globulin Ratio 0.7L Current Medications Medications (Trade) Dose Ordered Sig/Heaven Route PRN Reason Start Time Stop Time Status Last Admin Dose Admin Acetaminophen (Tylenol) 650 mg Q4H PRN ORAL fever 08/11/16 22:00 09/10/16 21:59 Albuterol/ Ipratropium (DuoNeb 0.5-3(2.5)mg/3ml) 3 ml Q4H PRN HHN Shortness of Breath 08/11/16 22:00 08/16/16 21:59 Cefepime HCl 500 mg/Dextrose 55 ml @ 110 mls/hr Q24H IV 08/12/16 09:00 08/17/16 08:59 08/12/16 09:54 Docusate Sodium (Colace) 100 mg TID ORAL 08/12/16 09:00 09/11/16 08:59 08/12/16 18:26 Heparin Sodium (Porcine) (Heparin 5000 units/ml) 5,000 units EVERY 12 HOURS SUBQ 08/11/16 23:00 09/10/16 22:59 08/12/16 21:05 Linezolid (Zyvox) 600 mg EVERY 12 HOURS ORAL 08/12/16 23:00 08/17/16 22:59 08/12/16 22:25 Morphine Sulfate (Morphine Sulfate) 4 mg Q4H PRN IVP SEVERE PAIN 08/12/16 17:00 08/19/16 16:59 08/12/16 20:08 Nitroglycerin (Ntg) 0.4 mg Q5MIN X 3 DOSES PRN SL Prn Chest Pain 08/11/16 20:30 09/10/16 20:29 Ondansetron HCl (Zofran) 4 mg Q6H PRN IVP Nausea & Vomiting 08/11/16 22:00 09/10/16 21:59 Pantoprazole (Protonix) 40 mg BID ORAL 08/12/16 09:00 09/11/16 08:59 08/12/16 18:26 Polyethylene Glycol (Miralax) 17 gm DAILYPRN PRN ORAL Constipation 08/11/16 22:00 09/10/16 21:59 Sevelamer Carbonate (Renvela) 800 mg THREE TIMES A DAY ORAL 08/12/16 13:00 09/11/16 12:59 08/12/16 18:26 Sodium Chloride (Sodium Chloride 1000ml bag) 1,000 ml @ 75 mls/hr [id number] IVLG 08/11/16 22:00 09/10/16 21:59 08/12/16 18:26 Sodium Citrate (Bicitra) 30 ml QID ORAL 08/12/16 13:00 09/11/16 12:59 08/12/16 21:01 Temazepam (Restoril) 15 mg HSPRN PRN ORAL Insomnia 08/11/16 22:00 08/18/16 21:59 ABA GOMEZ Aug 12, 2016 23:55
[2016-08-13] VITALS: BP 121/73
[2016-08-13] MEDS: Morphine Sulfate 4mg/ml Inj IVP PRN ×2 (00:06→14:39)
[2016-08-13 03:33] VITALS: BP 124/83
[2016-08-13 07:37] LABS: ALBUMIN/GLOBULIN RATIO 0.6 (1.0-2.7); CALCIUM 7.8 mg/dL (8.6-10.2); CREATININE 5.5 mg/dL (0.5-0.9); GLOMERULAR FILTRATION RATE 7.9 mL/min (>60); PHOSPHORUS 7.2 mg/dL (2.5-4.8); TOTAL PROTEIN 5.7 g/dL (6.6-8.7); URIC ACID 8.2 mg/dL (3.0-7.5)
[2016-08-13 08:04] VITALS: BP 123/75
[2016-08-13] MEDS: Docusate 100mg tablet ORAL SCH ×3 (08:59→17:08)
[2016-08-13] MEDS: Heparin 5000 units/ml inj SUBQ SCH ×2 (09:00→20:42)
[2016-08-13] MEDS: Sodium Citrate 30ml ORAL SCH ×4 (09:00→20:40)
[2016-08-13 09:13] LABS: POTASSIUM 2.5 mEQ/L (3.4-4.9)
[2016-08-13] MEDS: Cefepime HCl 500 MG in D5W 55 ML IV SCH (10:08)
--- NOTE | 2016-08-13 10:53 | Infectious Diseases Prog Note ---
Assessment/Plan Assessment/Plan A: The patient is a pleasant 60-year-old Leukocytosis , SP Hx of recurrent urinary tract infection UCx : GPC ( ro VRE ) Dysuria and suprapubic pain CT : severe right hydronephrosis suggestive of stent malfunction, severe left hydronephrosis and hydroureter, and bladder wall thickening suggestive of cystitis. Anemia HTN History of cervical cancer status post chemo and radiation History of right kidney stent placement PLAN: cont pt on cefepime d # 3 ,and Zyvox d# 2 Monitor cultures (blood and urine). Monitor CBC. Monitor BMP. Urology following Blood transfusion as needed. Subjective Constitutional: Denies: anorexia, chills, drenching sweats, fatigue, fever, no symptoms, other Allergies: Coded Allergies: No Known Allergies (Unverified , 08/10/16) Subjective comfortable Objective Vital Signs Last 24 Hour Vital Signs Date Time Temp Pulse Resp B/P Pulse Ox O2 Delivery O2 Flow Rate FiO2 08/13/16 08:10 88 16 Room Air 21 08/13/16 08:04 98.1 96 19 123/75 97 Room Air 08/13/16 03:33 97.9 94 18 124/83 97 Room Air 08/13/16 00:40 97.5 08/13/16 00:00 98.2 91 22 121/73 97 Room Air 08/12/16 20:00 97.5 85 18 110/69 97 Room Air 08/12/16 19:45 87 16 Room Air 21 08/12/16 16:02 97.7 101 20 134/77 97 Room Air 08/12/16 12:50 98.1 89 20 113/76 98 Room Air Height (Feet): 5 Height (Inches): 8.00 Weight (Pounds): 127 HEENT: anicteric Respiratory/Chest: no respiratory distress Cardiovascular: regular rhythm Abdomen: soft, non tender Microbiology Date/Time Source Procedure Growth Status 08/10/16 20:47 Blood Blood Culture - Preliminary NO GROWTH AFTER 48 HOURS Resulted 08/10/16 20:37 Blood Blood Culture - Preliminary NO GROWTH AFTER 48 HOURS Resulted 08/10/16 20:47 Urine,Clean Catch Urine Culture - Preliminary Gram Positive Cocci Resulted Laboratory Tests Test 08/13/16 06:20 Sodium Level 137 mEQ/L (135-145) Potassium Level 2.5 mEQ/L (3.4-4.9) *L Chloride Level 97 mEQ/L (98-107) L Carbon Dioxide Level 15 mEQ/L (20-30) L Anion Gap 25 (5-15) H Blood Urea Nitrogen 94 mg/dL (7-23) H Creatinine 5.5 mg/dL (0.5-0.9) H Estimat Glomerular Filtration Rate 7.9 mL/min (>60) Glucose Level 106 mg/dL (74-106) Uric Acid 8.2 mg/dL (3.0-7.5) H Calcium Level 7.8 mg/dL (8.6-10.2) L Phosphorus Level 7.2 mg/dL (2.5-4.8) H Total Bilirubin 0.4 mg/dL (0.0-1.2) Aspartate Amino Transf (AST/SGOT) 9 U/L (5-40) Alanine Aminotransferase (ALT/SGPT) 5 U/L (3-33) Alkaline Phosphatase 84 U/L (35-104) Total Protein 5.7 g/dL (6.6-8.7) L Albumin 2.3 g/dL (3.5-5.2) L Globulin 3.4 g/dL Albumin/Globulin Ratio 0.6 (1.0-2.7) L Current Medications Medications (Trade) Dose Ordered Sig/Heaven Route PRN Reason Start Time Stop Time Status Last Admin Dose Admin Acetaminophen (Tylenol) 650 mg Q4H PRN ORAL fever 08/11/16 22:00 09/10/16 21:59 Albuterol/ Ipratropium (DuoNeb 0.5-3(2.5)mg/3ml) 3 ml Q4H PRN HHN Shortness of Breath 08/11/16 22:00 08/16/16 21:59 Cefepime HCl 500 mg/Dextrose 55 ml @ 110 mls/hr Q24H IV 08/12/16 09:00 08/17/16 08:59 08/13/16 10:08 Docusate Sodium (Colace) 100 mg TID ORAL 08/12/16 09:00 09/11/16 08:59 08/13/16 08:59 Heparin Sodium (Porcine) (Heparin 5000 units/ml) 5,000 units EVERY 12 HOURS SUBQ 08/11/16 23:00 09/10/16 22:59 3/16/17 09:00 Linezolid (Zyvox) 600 mg EVERY 12 HOURS ORAL 08/12/16 23:00 08/17/16 22:59 08/13/16 10:08 Morphine Sulfate (Morphine Sulfate) 4 mg Q4H PRN IVP SEVERE PAIN 08/12/16 17:00 08/19/16 16:59 08/13/16 00:06 Nitroglycerin (Ntg) 0.4 mg Q5MIN X 3 DOSES PRN SL Prn Chest Pain 08/11/16 20:30 09/10/16 20:29 Ondansetron HCl (Zofran) 4 mg Q6H PRN IVP Nausea & Vomiting 08/11/16 22:00 09/10/16 21:59 Pantoprazole (Protonix) 40 mg BID ORAL 08/12/16 09:00 09/11/16 08:59 08/13/16 08:59 Polyethylene Glycol (Miralax) 17 gm DAILYPRN PRN ORAL Constipation 08/11/16 22:00 09/10/16 21:59 Potassium Chloride (K-Dur) 40 meq ONCE ONCE ORAL 08/13/16 11:00 08/13/16 11:01 Potassium Chloride (K-Dur) 40 meq ONCE ONCE ORAL 08/13/16 14:00 08/13/16 14:01 UNV Sevelamer Carbonate (Renvela) 2,400 mg THREE TIMES A DAY ORAL 08/13/16 13:00 09/12/16 12:59 UNV Sodium Chloride (Sodium Chloride 1000ml bag) 1,000 ml @ 75 mls/hr [id number] IVLG 08/11/16 22:00 09/10/16 21:59 08/13/16 09:10 Sodium Citrate (Bicitra) 30 ml QID ORAL 08/12/16 13:00 09/11/16 12:59 08/13/16 09:00 Temazepam (Restoril) 15 mg HSPRN PRN ORAL Insomnia 08/11/16 22:00 08/18/16 21:59 LISANDRO WEBER M.D. Aug 13, 2016 10:53
--- NOTE | 2016-08-13 12:18 | Diagnostic Imaging Report ---
Indication: Acute renal failure Technique: Grayscale and duplex images of the kidneys, retroperitoneum, and bladder were obtained. Comparison:Reference made to CT scan dated 08/10/2016 Findings: Right kidney measures 13.1 cm in length. Left kidney measures 13.6 cm in length. Right kidney demonstrates moderate to severe hydronephrosis. There is a nephroureteral stent in place. A masslike lesion is seen within the right upper pole renal collecting system, measuring 3.7 x 2.9 cm. No definite corresponding abnormalities seen on noncontrast CT. Echogenic foci are seen in the renal pyramids. These are of uncertain significance, calculi are demonstrated on CT. The left kidney demonstrates severe hydronephrosis with nearly complete parenchymal loss. No focal abnormality. Normal inferior vena cava. Bladder is abnormal, contains the distal end of the stent as well as extensive debris. Impression: Right hydronephrosis, moderate to severe. Right nephroureteral stent in place. Persistent hydronephrosis raises concern for stent malfunction. Echogenic focus within the right upper pole renal collecting system. Suspect this represents debris, but mass not excludable. MRI may be useful to clarify, clinically indicated. Retrograde ureterography could also be useful. Severe left hydronephrosis, with profound loss of renal parenchyma, presumably long-standing Debris within the bladder
[2016-08-13 12:27] VITALS: BP 177/77
--- NOTE | 2016-08-13 12:58 | General Progress Note ---
Assessment/Plan Status: unchanged Status Narrative Cr 5.5 unchanged Assessment/Plan status; Renal failure- Likely acute on chronic- h/o Bilateral hydro, requiring stents by urology. history of cervical cancer, status post radiation therapy Severe Anemia Metabolic acidosis UTI Plan: K supplement Transfused Uro eval- appreciated monitor renal parameters Avoid nephrotoxics Bicitra increase Phos binders renal diet antibiotics kidneyUTZ: Right hydronephrosis, moderate to severe. Right nephroureteral stent in place. Persistent hydronephrosis raises concern for stent malfunction. Echogenic focus within the right upper pole renal collecting system. Suspect this represents debris, but mass not excludable. MRI may be useful to clarify, clinically indicated. Retrograde ureterography could also be useful. Severe left hydronephrosis, with profound loss of renal parenchyma, presumably long-standing Debris within the bladder Subjective ROS Limited/Unobtainable: No Constitutional: Reports: malaise, weakness Allergies: Coded Allergies: No Known Allergies (Unverified , 08/10/16) Objective Last 24 Hour Vital Signs Date Time Temp Pulse Resp B/P Pulse Ox O2 Delivery O2 Flow Rate FiO2 08/13/16 08:10 88 16 Room Air 21 08/13/16 08:04 98.1 96 19 123/75 97 Room Air 08/13/16 03:33 97.9 94 18 124/83 97 Room Air 08/13/16 00:40 97.5 08/13/16 00:00 98.2 91 22 121/73 97 Room Air 08/12/16 20:00 97.5 85 18 110/69 97 Room Air 08/12/16 19:45 87 16 Room Air 21 08/12/16 16:02 97.7 101 20 134/77 97 Room Air Intake and Output 08/12/16 08/13/16 19:00 07:00 Intake Total 560 ml 1477.5 ml Balance 560 ml 1477.5 ml Intake Oral 540 ml IV Total 560 ml 937.5 ml # Voids 2 4 Laboratory Tests 08/13/16 06:20: Sodium Level 137, Potassium Level 2.5*L, Chloride Level 97L, Carbon Dioxide Level 15L, Anion Gap 25H, Blood Urea Nitrogen 94H, Creatinine 5.5H, Estimat Glomerular Filtration Rate 7.9, Glucose Level 106, Uric Acid 8.2H, Calcium Level 7.8L, Phosphorus Level 7.2H, Total Bilirubin 0.4, Aspartate Amino Transf ( AST/SGOT) 9, Alanine Aminotransferase (ALT/SGPT) 5, Alkaline Phosphatase 84, Total Protein 5.7L, Albumin 2.3L, Globulin 3.4, Albumin/Globulin Ratio 0.6L Height (Feet): 5 Height (Inches): 8.00 Weight (Pounds): 127 General Appearance: no apparent distress Objective other PE not changed MINA JOSE Aug 13, 2016 12:58
--- NOTE | 2016-08-13 14:06 | Cardiology Report ---
APPROVED REPORT EKG Measurement Heart [id number] Poor data quality, interpretation may be adversely affected Sinus tachycardia Otherwise normal ECG
[2016-08-13] MEDS ORDERED: D5W 275ml ONE (15:23)
[2016-08-13] MEDS ORDERED: Tubing IV Secondary IV ONE (15:23)
[2016-08-13] MEDS ORDERED: Tubing Blood Filter IV ONE (15:23)
[2016-08-13] MEDS ORDERED: NS 275ml ONE (15:23)
[2016-08-13 16:17] VITALS: BP 129/86
[2016-08-13 20:27] VITALS: BP 143/93
--- NOTE | 2016-08-13 22:42 | Pulmonology Progress Note ---
Assessment/Plan Problems: (1) Symptomatic anemia (2) ATN (acute tubular necrosis) (3) Hydronephrosis Assessment/Plan Plan PrBC IV fluids Urology and renal evaluation Subjective ROS Limited/Unobtainable: No Constitutional: Reports: anorexia, fatigue Neurologic: Reports: weakness Allergies: Coded Allergies: No Known Allergies (Unverified , 08/10/16) Objective Last 24 Hour Vital Signs Date Time Temp Pulse Resp B/P Pulse Ox O2 Delivery O2 Flow Rate FiO2 08/13/16 20:27 97.9 99 18 143/93 96 Room Air 08/13/16 19:45 87 16 Room Air 21 08/13/16 16:17 98.1 95 19 129/86 96 Room Air 08/13/16 12:27 97.7 88 19 177/77 97 Room Air 08/13/16 08:10 88 16 Room Air 21 08/13/16 08:04 98.1 96 19 123/75 97 Room Air 08/13/16 03:33 97.9 94 18 124/83 97 Room Air 08/13/16 00:40 97.5 08/13/16 00:00 98.2 91 22 121/73 97 Room Air Intake and Output 08/12/16 08/13/16 19:00 07:00 Intake Total 560 ml 1477.5 ml Balance 560 ml 1477.5 ml Intake Oral 540 ml IV Total 560 ml 937.5 ml # Voids 2 4 General Appearance: no acute distress HEENT: normocephalic, atraumatic, PERRL Respiratory/Chest: chest wall non-tender, decreased breath sounds, accessory muscle use, rhonchi Breasts: no masses Cardiovascular: normal peripheral pulses, normal rate, regular rhythm, no JVD Abdomen: normal bowel sounds, soft, non tender, no organomegaly, non distended Genitourinary: normal external genitalia Extremities: no cyanosis Skin: no rash 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, no motor/sensory deficits Laboratory Tests 08/13/16 06:20: Sodium Level 137, Potassium Level 2.5*L, Chloride Level 97L, Carbon Dioxide Level 15L, Anion Gap 25H, Blood Urea Nitrogen 94H, Creatinine 5.5H, Estimat Glomerular Filtration Rate 7.9, Glucose Level 106, Uric Acid 8.2H, Calcium Level 7.8L, Phosphorus Level 7.2H, Total Bilirubin 0.4, Aspartate Amino Transf ( AST/SGOT) 9, Alanine Aminotransferase (ALT/SGPT) 5, Alkaline Phosphatase 84, Total Protein 5.7L, Albumin 2.3L, Globulin 3.4, Albumin/Globulin Ratio 0.6L Current Medications Medications (Trade) Dose Ordered Sig/Heaven Route PRN Reason Start Time Stop Time Status Last Admin Dose Admin Acetaminophen (Tylenol) 650 mg Q4H PRN ORAL fever 08/11/16 22:00 09/10/16 21:59 Albuterol/ Ipratropium (DuoNeb 0.5-3(2.5)mg/3ml) 3 ml Q4H PRN HHN Shortness of Breath 08/11/16 22:00 08/16/16 21:59 Ampicillin (Ampicillin) 500 mg Q12HR ORAL 08/13/16 21:00 08/20/16 20:59 08/13/16 20:40 Cefepime HCl 500 mg/Dextrose 55 ml @ 110 mls/hr Q24H IV 08/12/16 09:00 08/17/16 08:59 08/13/16 10:08 Docusate Sodium (Colace) 100 mg TID ORAL 08/12/16 09:00 09/11/16 08:59 08/13/16 17:08 Heparin Sodium (Porcine) (Heparin 5000 units/ml) 5,000 units EVERY 12 HOURS SUBQ 08/11/16 23:00 09/10/16 22:59 08/13/16 20:42 Morphine Sulfate (Morphine Sulfate) 4 mg Q4H PRN IVP SEVERE PAIN 08/12/16 17:00 08/19/16 16:59 08/13/16 14:39 Nitroglycerin (Ntg) 0.4 mg Q5MIN X 3 DOSES PRN SL Prn Chest Pain 08/11/16 20:30 09/10/16 20:29 Ondansetron HCl (Zofran) 4 mg Q6H PRN IVP Nausea & Vomiting 08/11/16 22:00 09/10/16 21:59 Pantoprazole (Protonix) 40 mg BID ORAL 08/12/16 09:00 09/11/16 08:59 08/13/16 17:08 Polyethylene Glycol (Miralax) 17 gm DAILYPRN PRN ORAL Constipation 08/11/16 22:00 09/10/16 21:59 Sevelamer Carbonate (Renvela) 2,400 mg THREE TIMES A DAY ORAL 08/13/16 13:00 09/12/16 12:59 08/13/16 17:08 Sodium Chloride (Sodium Chloride 1000ml bag) 1,000 ml @ 75 mls/hr [id number] IVLG 08/11/16 22:00 09/10/16 21:59 08/13/16 09:10 Sodium Citrate (Bicitra) 30 ml QID ORAL 08/12/16 13:00 09/11/16 12:59 08/13/16 20:40 Temazepam (Restoril) 15 mg HSPRN PRN ORAL Insomnia 08/11/16 22:00 08/18/16 21:59 ABA GOMEZ 16, 2017 22:42
[2016-08-14] VITALS (7 sets, daily range): BP systolic 128–151; BP diastolic 88–99
[2016-08-14 07:31] LABS: MEAN CORPUSCULAR HEMOGLOBIN 29.9 PG (27.0-31.0); MEAN CORPUSCULAR HGB CONC 33.4 G/DL (32.0-36.0); MEAN CORPUSCULAR VOLUME 90 FL (80-99); MEAN PLATELET VOLUME 4.4 FL (6.5-10.1); PLATELET COUNT 410 K/UL (150-450); RED CELL DISTRIBUTION WIDTH 15.7 % (11.6-14.8); WHITE BLOOD COUNT 13.3 K/UL (4.8-10.8)
[2016-08-14 07:34] LABS: ALBUMIN/GLOBULIN RATIO 0.7 (1.0-2.7); CALCIUM 7.9 mg/dL (8.6-10.2); CREATININE 5.6 mg/dL (0.5-0.9); GLOMERULAR FILTRATION RATE 7.8 mL/min (>60); MAGNESIUM 1.7 mg/dL (1.7-2.5); PHOSPHORUS 5.5 mg/dL (2.5-4.8); TOTAL PROTEIN 5.8 g/dL (6.6-8.7)
[2016-08-14 07:46] LABS: POTASSIUM 2.7 mEQ/L (3.4-4.9)
[2016-08-14] MEDS: Sodium Citrate 30ml ORAL SCH ×4 (08:12→20:31)
[2016-08-14] MEDS: Cefepime HCl 500 MG in D5W 55 ML IV SCH (08:13)
[2016-08-14] MEDS: Docusate 100mg tablet ORAL SCH ×3 (08:13→18:41)
[2016-08-14] MEDS: Heparin 5000 units/ml inj SUBQ SCH ×2 (08:17→20:33)
[2016-08-14] MEDS ORDERED: Tubing IV Secondary IV ONE (10:20)
[2016-08-14] MEDS ORDERED: Potassium Chloride 40 MEQ in D5W 500ml 500 ML IV ONE (11:00)
--- NOTE | 2016-08-14 11:07 | Infectious Diseases Prog Note ---
Assessment/Plan Assessment/Plan ASSESSMENT: 60-year-old female with: Recurrent complicated VSE.faecalis UTI / cystitis - urology following, pending possible stent change ( in place since april ) CT : severe right hydronephrosis suggestive of stent malfunction, severe left hydronephrosis and hydroureter, and bladder wall thickening suggestive of cystitis. Leukocytosis - recurrent, mild, afebrile ARF on CKD Anemia Thrombocytosis SP History of cervical cancer SP chemo and radiation NKDA Full Code PLAN: continue cefepime d # 4 / , ampicillin d# / . Ok to complete course with PO amoxicillin at discharge ( 08/13 SP zyvox d# 2 ) stent change - [facility] vs [facility] f/u final cultures Monitor CBC, temperatures Monitor BMP. Urology following Subjective Allergies: Coded Allergies: No Known Allergies (Unverified , 08/10/16) Subjective remains afebrile. no new complaint Objective Vital Signs Last 24 Hour Vital Signs Date Time Temp Pulse Resp B/P Pulse Ox O2 Delivery O2 Flow Rate FiO2 08/14/16 08:02 97.2 72 18 150/99 95 Room Air 08/14/16 04:00 97.3 90 18 128/89 97 Room Air 08/14/16 00:00 97.0 92 18 139/88 97 Room Air 08/13/16 20:27 97.9 99 18 143/93 96 Room Air 08/13/16 19:45 87 16 Room Air 21 08/13/16 16:17 98.1 95 19 129/86 96 Room Air 08/13/16 12:27 97.7 88 19 177/77 97 Room Air Height (Feet): 5 Height (Inches): 8.00 Weight (Pounds): 127 General Appearance: no acute distress Respiratory/Chest: no respiratory distress Cardiovascular: normal rate, regular rhythm Abdomen: normal bowel sounds, soft, non tender, non distended Laboratory Tests Test 08/14/16 06:40 White Blood Count 13.3 K/UL (4.8-10.8) H Red Blood Count 3.40 M/UL (4.20-5.40) L Hemoglobin 10.2 G/DL (12.0-16.0) L Hematocrit 30.5 % (37.0-47.0) L Mean Corpuscular Volume 90 FL (80-99) Mean Corpuscular Hemoglobin 29.9 PG (27.0-31.0) Mean Corpuscular Hemoglobin Concent 33.4 G/DL (32.0-36.0) Red Cell Distribution Width 15.7 % (11.6-14.8) H Platelet Count 410 K/UL (150-450) Mean Platelet Volume 4.4 FL (6.5-10.1) L Neutrophils (%) (Auto) % (45.0-75.0) Lymphocytes (%) (Auto) % (20.0-45.0) Monocytes (%) (Auto) % (1.0-10.0) Eosinophils (%) (Auto) % (0.0-3.0) Basophils (%) (Auto) % (0.0-2.0) Neutrophils % (Manual) Pending Lymphocytes % (Manual) Pending Platelet Estimate Pending Platelet Morphology Pending Sodium Level 135 mEQ/L (135-145) Potassium Level 2.7 mEQ/L (3.4-4.9) *L Chloride Level 94 mEQ/L (98-107) L Carbon Dioxide Level 17 mEQ/L (20-30) L Anion Gap 24 (5-15) H Blood Urea Nitrogen 85 mg/dL (7-23) H Creatinine 5.6 mg/dL (0.5-0.9) H Estimat Glomerular Filtration Rate 7.8 mL/min (>60) Glucose Level 115 mg/dL (74-106) H Calcium Level 7.9 mg/dL (8.6-10.2) L Phosphorus Level 5.5 mg/dL (2.5-4.8) H Magnesium Level 1.7 mg/dL (1.7-2.5) Total Bilirubin 0.4 mg/dL (0.0-1.2) Aspartate Amino Transf (AST/SGOT) 8 U/L (5-40) Alanine Aminotransferase (ALT/SGPT) 5 U/L (3-33) Alkaline Phosphatase 85 U/L (35-104) Total Protein 5.8 g/dL (6.6-8.7) L Albumin 2.4 g/dL (3.5-5.2) L Globulin 3.4 g/dL Albumin/Globulin Ratio 0.7 (1.0-2.7) L Current Medications Medications (Trade) Dose Ordered Sig/Heaven Route PRN Reason Start Time Stop Time Status Last Admin Dose Admin Acetaminophen (Tylenol) 650 mg Q4H PRN ORAL fever 08/11/16 22:00 09/10/16 21:59 Albuterol/ Ipratropium (DuoNeb 0.5-3(2.5)mg/3ml) 3 ml Q4H PRN HHN Shortness of Breath 08/11/16 22:00 08/16/16 21:59 Ampicillin (Ampicillin) 500 mg Q12HR ORAL 08/13/16 21:00 08/20/16 20:59 08/14/16 08:13 Cefepime HCl 500 mg/Dextrose 55 ml @ 110 mls/hr Q24H IV 08/12/16 09:00 08/17/16 08:59 08/14/16 08:13 Docusate Sodium (Colace) 100 mg TID ORAL 08/12/16 09:00 09/11/16 08:59 08/14/16 08:13 Folic Acid 1 mg 1 mg DAILY ORAL 08/14/16 09:00 09/13/16 08:59 08/14/16 08:13 Heparin Sodium (Porcine) (Heparin 5000 units/ml) 5,000 units EVERY 12 HOURS SUBQ 08/11/16 23:00 09/10/16 22:59 08/14/16 08:17 Morphine Sulfate (Morphine Sulfate) 4 mg Q4H PRN IVP SEVERE PAIN 08/12/16 17:00 08/19/16 16:59 08/13/16 14:39 Nitroglycerin (Ntg) 0.4 mg Q5MIN X 3 DOSES PRN SL Prn Chest Pain 08/11/16 20:30 09/10/16 20:29 Ondansetron HCl (Zofran) 4 mg Q6H PRN IVP Nausea & Vomiting 08/11/16 22:00 09/10/16 21:59 Pantoprazole (Protonix) 40 mg BID ORAL 08/12/16 09:00 09/11/16 08:59 08/14/16 08:13 Polyethylene Glycol (Miralax) 17 gm DAILYPRN PRN ORAL Constipation 08/11/16 22:00 09/10/16 21:59 Potassium Chloride/Dextrose (KCl/D5W 500ml) 520 ml @ 130 mls/hr ONCE ONCE IV 08/14/16 11:00 08/14/16 14:59 08/14/16 10:32 Sevelamer Carbonate (Renvela) 2,400 mg THREE TIMES A DAY ORAL 08/13/16 13:00 09/12/16 12:59 08/14/16 08:12 Sodium Chloride (Sodium Chloride 1000ml bag) 1,000 ml @ 75 mls/hr [id number] IVLG 08/11/16 22:00 09/10/16 21:59 08/14/16 01:20 Sodium Citrate (Bicitra) 30 ml QID ORAL 08/12/16 13:00 09/11/16 12:59 08/14/16 08:12 Temazepam (Restoril) 15 mg HSPRN PRN ORAL Insomnia 08/11/16 22:00 08/18/16 21:59 MAIKOL LOONEY 17, 2017 11:07
[2016-08-14 11:21] LABS: ANISOCYTOSIS 1+; BAND NEUTROPHILS % (MANUAL) 0 % (0-8); BASOPHILS % (MANUAL) 0 % (0-2); EOSINOPHILS % (MANUAL) 0 % (0-3); LYMPHOCYTES % (MANUAL) 3 % (20-45); NEUTROPHILS % (MANUAL) 91 % (45-75); PLATELET ESTIMATE ADEQUATE; PLATELET MORPHOLOGY NORMAL; TOTAL CELLS COUNTED 100
[2016-08-14 11:22] LABS: HYPOCHROMASIA 1+
[2016-08-14] MEDS ORDERED: KCl 10% 40mEq/30ml liquid ORAL SCH (12:30)
--- NOTE | 2016-08-14 12:48 | Pulmonology Progress Note ---
Assessment/Plan Assessment/Plan ASSESSMENT sepsis UTI ARF on CKD bilateral urethral stents bilateral hydronephrosis ( severe left and moderate to severe right) severe left hydroureter COPD r/o masslike lesion right upper pole severe anemia s/p blood transfusion hypokalemia-persistent hx of cervical Ca with radiation metabolic acidosis elevated CEA PLAN OF CARE MS floor abdominal CT and abdominal US revealed bilateral hydronephrosis , nephro follows need HD but declining, monitor renal parameters, lytes avoid nephrotoxic on Bicitra PhosLo binder dose increased abx , K replaced IVF O2, HHN prn DVT, GI prophylaxis seen by urologist, declined stent replacement pain manageetmn bowel regimen add Folic acid ( low folate level) check stool OB abdominal IS with hypoechoic focus R upper pole kidney, mass not excludable, recommended MRI - per nephro discretion had a lopng discussion with the giovanni. norma wants to go to [facility] since her PMD is there for further management unable to leave till Wednesday her sister will be back Wednesday night case discussed and evaluated by supervising physician Subjective Allergies: Coded Allergies: No Known Allergies (Unverified , 08/10/16) Subjective leukocytosis today, afebrile K still low Objective Last 24 Hour Vital Signs Date Time Temp Pulse Resp B/P Pulse Ox O2 Delivery O2 Flow Rate FiO2 08/14/16 12:04 97.2 80 18 137/99 96 Room Air 08/14/16 10:05 85 16 Room Air 21 08/14/16 08:02 97.2 72 18 150/99 95 Room Air 08/14/16 04:00 97.3 90 18 128/89 97 Room Air 08/14/16 00:00 97.0 92 18 139/88 97 Room Air 08/13/16 20:27 97.9 99 18 143/93 96 Room Air 08/13/16 19:45 87 16 Room Air 21 08/13/16 16:17 98.1 95 19 129/86 96 Room Air Intake and Output 08/13/16 08/14/16 19:00 07:00 Intake Total 120 ml 1315 ml Balance 120 ml 1315 ml Intake Oral 120 ml 640 ml IV Total 675 ml # Voids 6 General Appearance: no acute distress, cachetic HEENT: normocephalic, atraumatic, anicteric Respiratory/Chest: lungs clear, no respiratory distress, no accessory muscle use Cardiovascular: normal rate, regular rhythm, no JVD Abdomen: normal bowel sounds, soft, non tender, non distended Genitourinary: normal external genitalia Extremities: no edema, pedal pulses normal Neurologic/Psychiatric: alert, responsive Musculoskeletal: normal muscle bulk Laboratory Tests 08/14/16 06:40: White Blood Count 13.3H, Red Blood Count 3.40L, Hemoglobin 10.2L, Hematocrit 30.5L, Mean Corpuscular Volume 90, Mean Corpuscular Hemoglobin 29.9, Mean Corpuscular Hemoglobin Concent 33.4, Red Cell Distribution Width 15.7H, Platelet Count 410, Mean Platelet Volume 4.4L, Neutrophils (%) (Auto) , Lymphocytes (%) (Auto) , Monocytes (%) (Auto) , Eosinophils (%) (Auto) , Basophils (%) (Auto) , Differential Total Cells Counted 100, Neutrophils % ( Manual) 91H, Lymphocytes % (Manual) 3L, Monocytes % (Manual) 6, Eosinophils % ( Manual) 0, Basophils % (Manual) 0, Band Neutrophils 0, Platelet Estimate Adequate, Platelet Morphology Normal, Hypochromasia 1+, Anisocytosis 1+, Sodium Level 135, Potassium Level 2.7*L, Chloride Level 94L, Carbon Dioxide Level 17L, Anion Gap 24H, Blood Urea Nitrogen 85H, Creatinine 5.6H, Estimat Glomerular Filtration Rate 7.8, Glucose Level 115H, Calcium Level 7.9L, Phosphorus Level 5.5H, Magnesium Level 1.7, Total Bilirubin 0.4, Aspartate Amino Transf (AST/SGOT ) 8, Alanine Aminotransferase (ALT/SGPT) 5, Alkaline Phosphatase 85, Total Protein 5.8L, Albumin 2.4L, Globulin 3.4, Albumin/Globulin Ratio 0.7L Current Medications Medications (Trade) Dose Ordered Sig/Heaven Route PRN Reason Start Time Stop Time Status Last Admin Dose Admin Acetaminophen (Tylenol) 650 mg Q4H PRN ORAL fever 08/11/16 22:00 09/10/16 21:59 Albuterol/ Ipratropium (DuoNeb 0.5-3(2.5)mg/3ml) 3 ml Q4H PRN HHN Shortness of Breath 08/11/16 22:00 08/16/16 21:59 Ampicillin (Ampicillin) 500 mg Q12HR ORAL 08/13/16 21:00 08/20/16 20:59 08/14/16 08:13 Cefepime HCl 500 mg/Dextrose 55 ml @ 110 mls/hr Q24H IV 08/12/16 09:00 08/17/16 08:59 08/14/16 08:13 Docusate Sodium (Colace) 100 mg TID ORAL 08/12/16 09:00 09/11/16 08:59 08/14/16 12:19 Folic Acid 1 mg 1 mg DAILY ORAL 08/14/16 09:00 09/13/16 08:59 08/14/16 08:13 Heparin Sodium (Porcine) (Heparin 5000 units/ml) 5,000 units EVERY 12 HOURS SUBQ 08/11/16 23:00 09/10/16 22:59 08/14/16 08:17 Morphine Sulfate (Morphine Sulfate) 4 mg Q4H PRN IVP SEVERE PAIN 08/12/16 17:00 08/19/16 16:59 08/13/16 14:39 Nitroglycerin (Ntg) 0.4 mg Q5MIN X 3 DOSES PRN SL Prn Chest Pain 08/11/16 20:30 09/10/16 20:29 Ondansetron HCl (Zofran) 4 mg Q6H PRN IVP Nausea & Vomiting 08/11/16 22:00 09/10/16 21:59 Pantoprazole (Protonix) 40 mg BID ORAL 08/12/16 09:00 09/11/16 08:59 08/14/16 08:13 Polyethylene Glycol (Miralax) 17 gm DAILYPRN PRN ORAL Constipation 08/11/16 22:00 09/10/16 21:59 Potassium Chloride/Dextrose (KCl/D5W 500ml) 520 ml @ 130 mls/hr ONCE ONCE IV 08/14/16 11:00 08/14/16 14:59 08/14/16 10:32 Potassium Chloride (KCl 10% 40mEq Oral solution) 40 meq DAILY ORAL 08/14/16 12:30 09/13/16 12:29 08/14/16 12:19 Sevelamer Carbonate (Renvela) 2,400 mg THREE TIMES A DAY ORAL 08/13/16 13:00 09/12/16 12:59 08/14/16 12:19 Sodium Chloride (Sodium Chloride 1000ml bag) 1,000 ml @ 75 mls/hr [id number] IVLG 08/11/16 22:00 09/10/16 21:59 08/14/16 01:20 Sodium Citrate (Bicitra) 30 ml QID ORAL 08/12/16 13:00 09/11/16 12:59 08/14/16 12:19 Temazepam (Restoril) 15 mg HSPRN PRN ORAL Insomnia 08/11/16 22:00 08/18/16 21:59 Santos (AidanAlecia peña NP Aug 14, 2016 12:48
--- NOTE | 2016-08-14 13:49 | General Progress Note ---
Assessment/Plan Status: stable Status Narrative Cr unchanged- K still low- High phos lowering Assessment/Plan status; Renal failure- Likely acute on chronic- h/o Bilateral hydro, requiring stents by urology. history of cervical cancer, status post radiation therapy Severe Anemia Metabolic acidosis UTI Plan: K supplement IV and PO today- Transfused Uro eval- appreciated monitor renal parameters Avoid nephrotoxics Bicitra increase Phos binders renal diet antibiotics kidneyUTZ: Right hydronephrosis, moderate to severe. Right nephroureteral stent in place. Persistent hydronephrosis raises concern for stent malfunction. Echogenic focus within the right upper pole renal collecting system. Suspect this represents debris, but mass not excludable. MRI may be useful to clarify, clinically indicated. Retrograde ureterography could also be useful. Severe left hydronephrosis, with profound loss of renal parenchyma, presumably long-standing Debris within the bladder Subjective ROS Limited/Unobtainable: No Constitutional: Reports: malaise, weakness Allergies: Coded Allergies: No Known Allergies (Unverified , 08/10/16) Objective Last 24 Hour Vital Signs Date Time Temp Pulse Resp B/P Pulse Ox O2 Delivery O2 Flow Rate FiO2 08/14/16 12:04 97.2 80 18 137/99 96 Room Air 08/14/16 10:05 85 16 Room Air 08/14/16 08:02 97.2 72 18 150/99 95 Room Air 08/14/16 04:00 97.3 90 18 128/89 97 Room Air 08/14/16 00:00 97.0 92 18 139/88 97 Room Air 08/13/16 20:27 97.9 99 18 143/93 96 Room Air 08/13/16 19:45 87 16 Room Air 21 08/13/16 16:17 98.1 95 19 129/86 96 Room Air Intake and Output 08/13/16 08/14/16 19:00 07:00 Intake Total 120 ml 1315 ml Balance 120 ml 1315 ml Intake Oral 120 ml 640 ml IV Total 675 ml # Voids 6 Laboratory Tests 08/14/16 06:40: White Blood Count 13.3H, Red Blood Count 3.40L, Hemoglobin 10.2L, Hematocrit 30.5L, Mean Corpuscular Volume 90, Mean Corpuscular Hemoglobin 29.9, Mean Corpuscular Hemoglobin Concent 33.4, Red Cell Distribution Width 15.7H, Platelet Count 410, Mean Platelet Volume 4.4L, Neutrophils (%) (Auto) , Lymphocytes (%) (Auto) , Monocytes (%) (Auto) , Eosinophils (%) (Auto) , Basophils (%) (Auto) , Differential Total Cells Counted 100, Neutrophils % ( Manual) 91H, Lymphocytes % (Manual) 3L, Monocytes % (Manual) 6, Eosinophils % ( Manual) 0, Basophils % (Manual) 0, Band Neutrophils 0, Platelet Estimate Adequate, Platelet Morphology Normal, Hypochromasia 1+, Anisocytosis 1+, Sodium Level 135, Potassium Level 2.7*L, Chloride Level 94L, Carbon Dioxide Level 17L, Anion Gap 24H, Blood Urea Nitrogen 85H, Creatinine 5.6H, Estimat Glomerular Filtration Rate 7.8, Glucose Level 115H, Calcium Level 7.9L, Phosphorus Level 5.5H, Magnesium Level 1.7, Total Bilirubin 0.4, Aspartate Amino Transf (AST/SGOT ) 8, Alanine Aminotransferase (ALT/SGPT) 5, Alkaline Phosphatase 85, Total Protein 5.8L, Albumin 2.4L, Globulin 3.4, Albumin/Globulin Ratio 0.7L Height (Feet): 5 Height (Inches): 8.00 Weight (Pounds): 127 General Appearance: no apparent distress Objective other PE not changed MINA JOSE Aug 14, 2016 13:49
[2016-08-15 04:00] VITALS: BP 142/91
[2016-08-15] MEDS: Morphine Sulfate 4mg/ml Inj IVP PRN ×2 (04:24→08:32)
[2016-08-15 08:23] LABS: MEAN CORPUSCULAR HEMOGLOBIN 30.2 PG (27.0-31.0); MEAN CORPUSCULAR HGB CONC 33.7 G/DL (32.0-36.0); MEAN CORPUSCULAR VOLUME 90 FL (80-99); MEAN PLATELET VOLUME 4.5 FL (6.5-10.1); PLATELET COUNT 492 K/UL (150-450); RED BLOOD COUNT 3.68 M/UL (4.20-5.40); RED CELL DISTRIBUTION WIDTH 15.7 % (11.6-14.8)
[2016-08-15] MEDS: Sodium Citrate 30ml ORAL SCH ×3 (08:29→18:46)
[2016-08-15] MEDS: Docusate 100mg tablet ORAL SCH ×3 (08:29→18:46)
[2016-08-15] MEDS: Cefepime HCl 500 MG in D5W 55 ML IV SCH (08:30)
[2016-08-15] MEDS: Heparin 5000 units/ml inj SUBQ SCH ×2 (08:32→21:14)
[2016-08-15 08:43] VITALS: BP 140/101
[2016-08-15 08:44] LABS: ALBUMIN/GLOBULIN RATIO 0.6 (1.0-2.7); CALCIUM 8.2 mg/dL (8.6-10.2); CREATININE 5.1 mg/dL (0.5-0.9); CRP QUANT 9.4 mg/dL (< 0.5); GLOMERULAR FILTRATION RATE 8.7 mL/min (>60); MAGNESIUM 1.8 mg/dL (1.7-2.5); PHOSPHORUS 4.2 mg/dL (2.5-4.8); POTASSIUM 3.2 mEQ/L (3.4-4.9); TOTAL PROTEIN 6.1 g/dL (6.6-8.7); URIC ACID 6.6 mg/dL (3.0-7.5)
--- NOTE | 2016-08-15 09:26 | General Progress Note ---
Assessment/Plan Status: stable Status Narrative Cr lower 5.1- K higher 3.2 Assessment/Plan status; Renal failure- Likely acute on chronic- h/o Bilateral hydro, requiring stents by urology. history of cervical cancer, status post radiation therapy Severe Anemia Metabolic acidosis UTI Plan: K supplement IV 20meq today Transfused Uro eval- appreciated monitor renal parameters Avoid nephrotoxics Bicitra increase Phos binders renal diet antibiotics kidneyUTZ: Right hydronephrosis, moderate to severe. Right nephroureteral stent in place. Persistent hydronephrosis raises concern for stent malfunction. Echogenic focus within the right upper pole renal collecting system. Suspect this represents debris, but mass not excludable. MRI may be useful to clarify, clinically indicated. Retrograde ureterography could also be useful. Severe left hydronephrosis, with profound loss of renal parenchyma, presumably long-standing Debris within the bladder Subjective ROS Limited/Unobtainable: No Allergies: Coded Allergies: No Known Allergies (Unverified , 08/10/16) Objective Last 24 Hour Vital Signs Date Time Temp Pulse Resp B/P Pulse Ox O2 Delivery O2 Flow Rate FiO2 08/15/16 08:43 97.7 112 22 140/101 97 Room Air 08/15/16 07:26 113 20 Room Air 21 08/15/16 04:54 97.7 08/15/16 04:00 97.7 89 18 142/91 97 Room Air 08/14/16 23:57 97.0 99 20 151/98 95 Room Air 08/14/16 20:00 97.7 102 20 134/95 97 Room Air 08/14/16 19:30 94 20 Room Air 21 08/14/16 16:00 97.9 102 22 131/96 96 Room Air 08/14/16 12:04 97.2 80 18 137/99 96 Room Air 08/14/16 10:05 85 16 Room Air 21 Intake and Output 08/14/16 08/15/16 19:00 07:00 Intake Total 920 ml 960 ml Balance 920 ml 960 ml Intake Oral 120 ml 360 ml IV Total 800 ml 600 ml # Voids 3 5 Laboratory Tests 08/15/16 05:30: White Blood Count 11.0H, Red Blood Count 3.68L, Hemoglobin 11.1L, Hematocrit 32.9L, Mean Corpuscular Volume 90, Mean Corpuscular Hemoglobin 30.2, Mean Corpuscular Hemoglobin Concent 33.7, Red Cell Distribution Width 15.7H, Platelet Count 492H, Mean Platelet Volume 4.5L, Neutrophils (%) (Auto) , Lymphocytes (%) (Auto) , Monocytes (%) (Auto) , Eosinophils (%) (Auto) , Basophils (%) (Auto) , Neutrophils % (Manual) [Pending], Lymphocytes % (Manual) [Pending], Platelet Estimate [Pending], Platelet Morphology [Pending], Sodium Level 137, Potassium Level 3.2L, Chloride Level 95L, Carbon Dioxide Level 18L, Anion Gap 24H, Blood Urea Nitrogen 77H, Creatinine 5.1H, Estimat Glomerular Filtration Rate 8.7, Glucose Level 112H, Uric Acid 6.6, Calcium Level 8.2L, Phosphorus Level 4.2, Magnesium Level 1.8, Total Bilirubin 0.4, Gamma Glutamyl Transpeptidase 24, Aspartate Amino Transf (AST/SGOT) 11, Alanine Aminotransferase (ALT/SGPT) 6, Alkaline Phosphatase 161H, C-Reactive Protein, Quantitative 9.4H, Total Protein 6.1L, Albumin 2.4L, Globulin 3.7, Albumin/ Globulin Ratio 0.6L Height (Feet): 5 Height (Inches): 8.00 Weight (Pounds): 127 General Appearance: no apparent distress Cardiovascular: normal rate Abdomen: soft Objective other PE not changed MINA JOSE 18, 2017 09:26
[2016-08-15 10:29] LABS: BAND NEUTROPHILS % (MANUAL) 0 % (0-8); BASOPHILS % (MANUAL) 0 % (0-2); EOSINOPHILS % (MANUAL) 2 % (0-3); LYMPHOCYTES % (MANUAL) 9 % (20-45); NEUTROPHILS % (MANUAL) 87 % (45-75); PLATELET ESTIMATE ADEQUATE; PLATELET MORPHOLOGY NORMAL; TOTAL CELLS COUNTED 100
[2016-08-15 10:31] LABS: MACROCYTES OCCASIONAL
--- NOTE | 2016-08-15 10:59 | Infectious Diseases Prog Note ---
Assessment/Plan Assessment/Plan ASSESSMENT: 60-year-old female with: Recurrent complicated VSE.faecalis UTI / cystitis - urology following, pending possible stent change ( in place since april ) CT: severe right hydronephrosis suggestive of stent malfunction, severe left hydronephrosis and hydroureter, and bladder wall thickening suggestive of cystitis. Leukocytosis - recurrent, mild, improved, afebrile ARF on CKD - improved Anemia Thrombocytosis SP History of cervical cancer SP chemo and radiation NKDA Full Code PLAN: continue cefepime d # 5 / , ampicillin d# 2 / 10. Ok to complete course with PO amoxicillin at discharge ( 08/13 SP zyvox d# 2 ) stent change - [facility] vs [facility] f/u final cultures Monitor CBC, temperatures Monitor BMP. Urology following Subjective Allergies: Coded Allergies: No Known Allergies (Unverified , 08/10/16) Subjective remains afebrile. no new complaint Objective Vital Signs Last 24 Hour Vital Signs Date Time Temp Pulse Resp B/P Pulse Ox O2 Delivery O2 Flow Rate FiO2 08/15/16 09:02 97.7 08/15/16 08:43 97.7 112 22 140/101 97 Room Air 08/15/16 07:26 113 20 Room Air 21 08/15/16 04:00 97.7 89 18 142/91 97 Room Air 08/14/16 23:57 97.0 99 20 151/98 95 Room Air 08/14/16 20:00 97.7 102 20 134/95 97 Room Air 08/14/16 19:30 94 20 Room Air 21 08/14/16 16:00 97.9 102 22 131/96 96 Room Air 08/14/16 12:04 97.2 80 18 137/99 96 Room Air Height (Feet): 5 Height (Inches): 8.00 Weight (Pounds): 127 General Appearance: no acute distress Respiratory/Chest: no respiratory distress Cardiovascular: normal rate, regular rhythm Abdomen: normal bowel sounds, soft, non tender, non distended Laboratory Tests Test 08/15/16 05:30 White Blood Count 11.0 K/UL (4.8-10.8) H Red Blood Count 3.68 M/UL (4.20-5.40) L Hemoglobin 11.1 G/DL (12.0-16.0) L Hematocrit 32.9 % (37.0-47.0) L Mean Corpuscular Volume 90 FL (80-99) Mean Corpuscular Hemoglobin 30.2 PG (27.0-31.0) Mean Corpuscular Hemoglobin Concent 33.7 G/DL (32.0-36.0) Red Cell Distribution Width 15.7 % (11.6-14.8) H Platelet Count 492 K/UL (150-450) H Mean Platelet Volume 4.5 FL (6.5-10.1) L Neutrophils (%) (Auto) % (45.0-75.0) Lymphocytes (%) (Auto) % (20.0-45.0) Monocytes (%) (Auto) % (1.0-10.0) Eosinophils (%) (Auto) % (0.0-3.0) Basophils (%) (Auto) % (0.0-2.0) Differential Total Cells Counted 100 Neutrophils % (Manual) 87 % (45-75) H Lymphocytes % (Manual) 9 % (20-45) L Monocytes % (Manual) 2 % (1-10) Eosinophils % (Manual) 2 % (0-3) Basophils % (Manual) 0 % (0-2) Band Neutrophils 0 % (0-8) Platelet Estimate Adequate Platelet Morphology Normal Macrocytosis Occasional Sodium Level 137 mEQ/L (135-145) Potassium Level 3.2 mEQ/L (3.4-4.9) L Chloride Level 95 mEQ/L (98-107) L Carbon Dioxide Level 18 mEQ/L (20-30) L Anion Gap 24 (5-15) H Blood Urea Nitrogen 77 mg/dL (7-23) H Creatinine 5.1 mg/dL (0.5-0.9) H Estimat Glomerular Filtration Rate 8.7 mL/min (>60) Glucose Level 112 mg/dL (74-106) H Uric Acid 6.6 mg/dL (3.0-7.5) Calcium Level 8.2 mg/dL (8.6-10.2) L Phosphorus Level 4.2 mg/dL (2.5-4.8) Magnesium Level 1.8 mg/dL (1.7-2.5) Total Bilirubin 0.4 mg/dL (0.0-1.2) Gamma Glutamyl Transpeptidase 24 U/L (5-36) Aspartate Amino Transf (AST/SGOT) 11 U/L (5-40) Alanine Aminotransferase (ALT/SGPT) 6 U/L (3-33) Alkaline Phosphatase 161 U/L (35-104) H C-Reactive Protein, Quantitative 9.4 mg/dL (< 0.5) H Total Protein 6.1 g/dL (6.6-8.7) L Albumin 2.4 g/dL (3.5-5.2) L Globulin 3.7 g/dL Albumin/Globulin Ratio 0.6 (1.0-2.7) L Current Medications Medications (Trade) Dose Ordered Sig/Heaven Route PRN Reason Start Time Stop Time Status Last Admin Dose Admin Acetaminophen (Tylenol) 650 mg Q4H PRN ORAL fever 08/11/16 22:00 09/10/16 21:59 Albuterol/ Ipratropium (DuoNeb 0.5-3(2.5)mg/3ml) 3 ml Q4H PRN HHN Shortness of Breath 08/11/16 22:00 08/16/16 21:59 Ampicillin (Ampicillin) 500 mg Q12HR ORAL 08/13/16 21:00 08/20/16 20:59 08/15/16 08:29 Cefepime HCl 500 mg/Dextrose 55 ml @ 110 mls/hr Q24H IV 08/12/16 09:00 08/17/16 08:59 08/15/16 08:30 Docusate Sodium (Colace) 100 mg TID ORAL 08/12/16 09:00 09/11/16 08:59 08/15/16 08:29 Folic Acid 1 mg 1 mg DAILY ORAL 08/14/16 09:00 09/13/16 08:59 08/15/16 08:35 Heparin Sodium (Porcine) (Heparin 5000 units/ml) 5,000 units EVERY 12 HOURS SUBQ 08/11/16 23:00 09/10/16 22:59 08/15/16 08:32 Morphine Sulfate (Morphine Sulfate) 4 mg Q4H PRN IVP SEVERE PAIN 08/12/16 17:00 08/19/16 16:59 08/15/16 08:32 Nitroglycerin (Ntg) 0.4 mg Q5MIN X 3 DOSES PRN SL Prn Chest Pain 08/11/16 20:30 09/10/16 20:29 Ondansetron HCl (Zofran) 4 mg Q6H PRN IVP Nausea & Vomiting 08/11/16 22:00 09/10/16 21:59 Pantoprazole (Protonix) 40 mg BID ORAL 08/12/16 09:00 09/11/16 08:59 08/15/16 08:30 Polyethylene Glycol (Miralax) 17 gm DAILYPRN PRN ORAL Constipation 08/11/16 22:00 09/10/16 21:59 Potassium Chloride (KCl 10mEq/100ml Premix) 100 ml @ 100 mls/hr Q1H IVPB 08/15/16 09:30 08/15/16 11:29 08/15/16 10:36 Sevelamer Carbonate (Renvela) 1,600 mg THREE TIMES A DAY ORAL 08/15/16 13:00 09/14/16 12:59 Sodium Chloride (Sodium Chloride 1000ml bag) 1,000 ml @ 75 mls/hr [id number] IVLG 08/11/16 22:00 09/10/16 21:59 08/15/16 06:01 Sodium Citrate (Bicitra) 30 ml TID ORAL 08/15/16 13:00 09/14/16 12:59 Temazepam (Restoril) 15 mg HSPRN PRN ORAL Insomnia 08/11/16 22:00 08/18/16 21:59 08/15/16 02:15 MAIKOL LOONEY 18, 2017 10:59
[2016-08-15 12:21] VITALS: BP 135/105
--- NOTE | 2016-08-15 14:40 | Pulmonology Progress Note ---
Assessment/Plan Assessment/Plan ASSESSMENT sepsis UTI ARF on CKD bilateral urethral stents bilateral hydronephrosis ( severe left and moderate to severe right) severe left hydroureter COPD r/o masslike lesion right upper pole severe anemia s/p blood transfusion hypokalemia-persistent hx of cervical Ca with radiation metabolic acidosis elevated CEA PLAN OF CARE [facility] floor abdominal CT and abdominal US revealed bilateral hydronephrosis , nephro follows need HD but declining, monitor renal parameters, lytes avoid nephrotoxic on Bicitra PhosLo binder dose increased abx , on dc Amoxicillin as per iD K replaced IVF O2, HHN prn DVT, GI prophylaxis seen by urologist, declined stent replacement pain manageetmn bowel regimen add Folic acid ( low folate level) check stool OB abdominal IS with hypoechoic focus R upper pole kidney, mass not excludable, recommended MRI - per nephro discretion had a lopng discussion with the apteitn. norma wants to go to [facility] since her PMD is there for further management unable to leave till Wednesday her sister will be back Wednesday night have a long discussion with the patietn will dc in am she will go to [facility] more comfortable where her PMD is scripts provided case discussed and evaluated by supervising physician Subjective Allergies: Coded Allergies: No Known Allergies (Unverified , 08/10/16) Subjective mild leukocytosis , afebrile still low K Objective Last 24 Hour Vital Signs Date Time Temp Pulse Resp B/P Pulse Ox O2 Delivery O2 Flow Rate FiO2 08/15/16 13:22 135/105 08/15/16 12:21 97.5 112 22 135/105 96 Room Air 08/15/16 09:02 97.7 08/15/16 08:43 97.7 112 22 140/101 97 Room Air 08/15/16 07:26 113 20 Room Air 21 08/15/16 04:00 97.7 89 18 142/91 97 Room Air 08/14/16 23:57 97.0 99 20 151/98 95 Room Air 08/14/16 20:00 97.7 102 20 134/95 97 Room Air 08/14/16 19:30 94 20 Room Air 21 08/14/16 16:00 97.9 102 22 131/96 96 Room Air Intake and Output 08/14/16 08/15/16 19:00 07:00 Intake Total 920 ml 960 ml Balance 920 ml 960 ml Intake Oral 120 ml 360 ml IV Total 800 ml 600 ml # Voids 3 5 Objective General Appearance: no acute distress, cachetic HEENT: normocephalic, atraumatic, anicteric Respiratory/Chest: lungs clear, no respiratory distress, no accessory muscle use Cardiovascular: normal rate, regular rhythm, no JVD Abdomen: normal bowel sounds, soft, non tender, non distended Genitourinary: normal external genitalia Extremities: no edema, pedal pulses normal Neurologic/Psychiatric: alert, responsive Musculoskeletal: normal muscle bulk Laboratory Tests 08/15/16 05:30: White Blood Count 11.0H, Red Blood Count 3.68L, Hemoglobin 11.1L, Hematocrit 32.9L, Mean Corpuscular Volume 90, Mean Corpuscular Hemoglobin 30.2, Mean Corpuscular Hemoglobin Concent 33.7, Red Cell Distribution Width 15.7H, Platelet Count 492H, Mean Platelet Volume 4.5L, Neutrophils (%) (Auto) , Lymphocytes (%) (Auto) , Monocytes (%) (Auto) , Eosinophils (%) (Auto) , Basophils (%) (Auto) , Differential Total Cells Counted 100, Neutrophils % ( Manual) 87H, Lymphocytes % (Manual) 9L, Monocytes % (Manual) 2, Eosinophils % ( Manual) 2, Basophils % (Manual) 0, Band Neutrophils 0, Platelet Estimate Adequate, Platelet Morphology Normal, Macrocytosis Occasional, Sodium Level 137 , Potassium Level 3.2L, Chloride Level 95L, Carbon Dioxide Level 18L, Anion Gap 24H, Blood Urea Nitrogen 77H, Creatinine 5.1H, Estimat Glomerular Filtration Rate 8.7, Glucose Level 112H, Uric Acid 6.6, Calcium Level 8.2L, Phosphorus Level 4.2, Magnesium Level 1.8, Total Bilirubin 0.4, Gamma Glutamyl Transpeptidase 24, Aspartate Amino Transf (AST/SGOT) 11, Alanine Aminotransferase (ALT/SGPT) 6, Alkaline Phosphatase 161H, C-Reactive Protein, Quantitative 9.4H, Total Protein 6.1L, Albumin 2.4L, Globulin 3.7, Albumin/ Globulin Ratio 0.6L Current Medications Medications (Trade) Dose Ordered Sig/Heaven Route PRN Reason Start Time Stop Time Status Last Admin Dose Admin Acetaminophen (Tylenol) 650 mg Q4H PRN ORAL fever 08/11/16 22:00 09/10/16 21:59 Albuterol/ Ipratropium (DuoNeb 0.5-3(2.5)mg/3ml) 3 ml Q4H PRN HHN Shortness of Breath 08/11/16 22:00 08/16/16 21:59 Ampicillin (Ampicillin) 500 mg Q12HR ORAL 08/13/16 21:00 08/20/16 20:59 08/15/16 08:29 Cefepime HCl 500 mg/Dextrose 55 ml @ 110 mls/hr Q24H IV 08/12/16 09:00 08/17/16 08:59 08/15/16 08:30 Docusate Sodium (Colace) 100 mg TID ORAL 08/12/16 09:00 09/11/16 08:59 08/15/16 13:20 Folic Acid (Folate) 1 mg DAILY ORAL 08/14/16 09:00 09/13/16 08:59 08/15/16 08:35 Heparin Sodium (Porcine) (Heparin 5000 units/ml) 5,000 units EVERY 12 HOURS SUBQ 08/11/16 23:00 09/10/16 22:59 08/15/16 08:32 Morphine Sulfate (Morphine Sulfate) 4 mg Q4H PRN IVP SEVERE PAIN 08/12/16 17:00 08/19/16 16:59 08/15/16 08:32 Nitroglycerin (Ntg) 0.4 mg Q5MIN X 3 DOSES PRN SL Prn Chest Pain 08/11/16 20:30 09/10/16 20:29 Ondansetron HCl (Zofran) 4 mg Q6H PRN IVP Nausea & Vomiting 08/11/16 22:00 09/10/16 21:59 Pantoprazole (Protonix) 40 mg BID ORAL 08/12/16 09:00 09/11/16 08:59 08/15/16 08:30 Polyethylene Glycol (Miralax) 17 gm DAILYPRN PRN ORAL Constipation 08/11/16 22:00 09/10/16 21:59 Sevelamer Carbonate (Renvela) 1,600 mg THREE TIMES A DAY ORAL 08/15/16 13:00 09/14/16 12:59 08/15/16 13:21 Sodium Chloride (Sodium Chloride 1000ml bag) 1,000 ml @ 75 mls/hr [id number] IVLG 08/11/16 22:00 09/10/16 21:59 08/15/16 06:01 Sodium Citrate (Bicitra) 30 ml TID ORAL 08/15/16 13:00 09/14/16 12:59 08/15/16 13:20 Temazepam (Restoril) 15 mg HSPRN PRN ORAL Insomnia 08/11/16 22:00 08/18/16 21:59 08/15/16 02:15 Santos ([facility])Alecia NP Aug 15, 2016 14:40
[2016-08-15] MEDS ORDERED: FOLIC ACID1 MG ORAL (14:44)
[2016-08-15] MEDS ORDERED: BICITRA30 ML ORAL (14:44)
[2016-08-15] MEDS ORDERED: RENVELA800 MG ORAL (14:44)
[2016-08-15] MEDS ORDERED: Tubing IV Secondary IV ONE (16:09)
[2016-08-15 16:10] VITALS: BP 130/97
[2016-08-15 20:00] VITALS: BP 148/73
[2016-08-15 22:01] VITALS: BP 148/73
[2016-08-16] VITALS: BP 133/93
[2016-08-16] MEDS: Miralax 17gm pkt ORAL PRN ×2 (00:37→11:44)
[2016-08-16] MEDS: Morphine Sulfate 4mg/ml Inj IVP PRN (02:41)
[2016-08-16 04:00] VITALS: BP 138/94
[2016-08-16 08:00] VITALS: BP 145/98
[2016-08-16] MEDS: Docusate 100mg tablet ORAL SCH ×3 (08:15→16:49)
[2016-08-16] MEDS: Sodium Citrate 30ml ORAL SCH ×3 (08:15→16:49)
[2016-08-16] MEDS: Cefepime HCl 500 MG in D5W 55 ML IV SCH (08:17)
[2016-08-16] MEDS: Heparin 5000 units/ml inj SUBQ SCH ×2 (08:19→20:45)
--- NOTE | 2016-08-16 10:38 | Infectious Diseases Prog Note ---
Assessment/Plan Assessment/Plan ASSESSMENT: 60-year-old female with: Recurrent complicated VSE.faecalis UTI / cystitis - urology following, pending possible stent change ( in place since april ) CT: severe right hydronephrosis suggestive of stent malfunction, severe left hydronephrosis and hydroureter, and bladder wall thickening suggestive of cystitis. Leukocytosis - recurrent, mild, improved, afebrile. No repeat CBC ARF on CKD - improved Possible renal mass Anemia Thrombocytosis SP History of cervical cancer SP chemo and radiation NKDA Full Code PLAN: continue cefepime d # 6 / , ampicillin d# 3 / . Ok to complete course with PO amoxicillin at discharge ( 08/13 SP zyvox d# 2 ) stent change - [facility] vs [facility] f/u final cultures Monitor CBC, temperatures Monitor BMP. Urology following Subjective Allergies: Coded Allergies: No Known Allergies (Unverified , 08/10/16) Subjective remains afebrile. no new complaint for possible DC Objective Vital Signs Last 24 Hour Vital Signs Date Time Temp Pulse Resp B/P Pulse Ox O2 Delivery O2 Flow Rate FiO2 08/16/16 08:00 98.6 120 20 145/98 97 Room Air 08/16/16 04:00 98.0 117 18 138/94 97 Room Air 08/16/16 00:00 97.7 113 20 133/93 97 Room Air 08/15/16 22:01 97.9 100 20 148/73 96 Room Air 08/15/16 20:00 97.9 100 20 148/73 96 Room Air 08/15/16 16:10 97.7 112 22 130/97 96 Room Air 08/15/16 13:22 135/105 08/15/16 12:21 97.5 112 22 135/105 96 Room Air Height (Feet): 5 Height (Inches): 8.00 Weight (Pounds): 127 General Appearance: no acute distress Respiratory/Chest: no respiratory distress Cardiovascular: normal rate, regular rhythm Abdomen: normal bowel sounds, soft, non tender, non distended Current Medications Medications (Trade) Dose Ordered Sig/Heaven Route PRN Reason Start Time Stop Time Status Last Admin Dose Admin Acetaminophen (Tylenol) 650 mg Q4H PRN ORAL fever 08/11/16 22:00 09/10/16 21:59 Albuterol/ Ipratropium (DuoNeb 0.5-3(2.5)mg/3ml) 3 ml Q4H PRN HHN Shortness of Breath 08/11/16 22:00 08/16/16 21:59 Ampicillin (Ampicillin) 500 mg Q12HR ORAL 08/13/16 21:00 08/20/16 20:59 08/16/16 08:15 Cefepime HCl 500 mg/Dextrose 55 ml @ 110 mls/hr Q24H IV 08/12/16 09:00 08/17/16 08:59 08/16/16 08:17 Docusate Sodium (Colace) 100 mg TID ORAL 08/12/16 09:00 09/11/16 08:59 08/16/16 08:15 Folic Acid (Folate) 1 mg DAILY ORAL 08/14/16 09:00 09/13/16 08:59 08/16/16 08:15 Heparin Sodium (Porcine) (Heparin 5000 units/ml) 5,000 units EVERY 12 HOURS SUBQ 08/11/16 23:00 09/10/16 22:59 08/16/16 08:19 Morphine Sulfate (Morphine Sulfate) 4 mg Q4H PRN IVP SEVERE PAIN 08/12/16 17:00 08/19/16 16:59 08/16/16 02:41 Nitroglycerin (Ntg) 0.4 mg Q5MIN X 3 DOSES PRN SL Prn Chest Pain 08/11/16 20:30 09/10/16 20:29 Ondansetron HCl (Zofran) 4 mg Q6H PRN IVP Nausea & Vomiting 08/11/16 22:00 09/10/16 21:59 Pantoprazole (Protonix) 40 mg BID ORAL 08/12/16 09:00 09/11/16 08:59 08/16/16 08:15 Polyethylene Glycol (Miralax) 17 gm DAILYPRN PRN ORAL Constipation 08/11/16 22:00 09/10/16 21:59 08/16/16 00:37 Sevelamer Carbonate (Renvela) 1,600 mg THREE TIMES A DAY ORAL 08/15/16 13:00 09/14/16 12:59 08/16/16 08:15 Sodium Chloride (Sodium Chloride 1000ml bag) 1,000 ml @ 75 mls/hr [id number] IVLG 08/11/16 22:00 09/10/16 21:59 08/16/16 08:17 Sodium Citrate (Bicitra) 30 ml TID ORAL 08/15/16 13:00 09/14/16 12:59 08/16/16 08:15 Temazepam (Restoril) 15 mg HSPRN PRN ORAL Insomnia 08/11/16 22:00 08/18/16 21:59 08/15/16 21:11 MAIKOL LOONEY 19, 2017 10:38
[2016-08-16 12:00] VITALS: BP 129/98
--- NOTE | 2016-08-16 12:07 | General Progress Note ---
Assessment/Plan Status: unchanged Status Narrative todays blood pending / Refused Assessment/Plan status; Renal failure- Likely acute on chronic- h/o Bilateral hydro, requiring stents by urology. history of cervical cancer, status post radiation therapy Severe Anemia Metabolic acidosis UTI Plan: SS eval in process no labs today yet- explained to patient in details the transfer situation and rules to other hospitals. Transfused previously- Uro eval- appreciated monitor renal parameters Avoid nephrotoxics Bicitra increase Phos binders renal diet antibiotics kidneyUTZ: Right hydronephrosis, moderate to severe. Right nephroureteral stent in place. Persistent hydronephrosis raises concern for stent malfunction. Echogenic focus within the right upper pole renal collecting system. Suspect this represents debris, but mass not excludable. MRI may be useful to clarify, clinically indicated. Retrograde ureterography could also be useful. Severe left hydronephrosis, with profound loss of renal parenchyma, presumably long-standing Debris within the bladder Subjective ROS Limited/Unobtainable: No Constitutional: Reports: malaise, other - anxious to go to [facility] Allergies: Coded Allergies: No Known Allergies (Unverified , 08/10/16) Objective Last 24 Hour Vital Signs Date Time Temp Pulse Resp B/P Pulse Ox O2 Delivery O2 Flow Rate FiO2 08/16/16 08:00 98.6 120 20 145/98 97 Room Air 08/16/16 04:00 98.0 117 18 138/94 97 Room Air 08/16/16 00:00 97.7 113 20 133/93 97 Room Air 08/15/16 22:01 97.9 100 20 148/73 96 Room Air 08/15/16 20:00 97.9 100 20 148/73 96 Room Air 08/15/16 16:10 97.7 112 22 130/97 96 Room Air 08/15/16 13:22 135/105 08/15/16 12:21 97.5 112 22 135/105 96 Room Air Intake and Output 08/15/16 08/16/16 19:00 07:00 Intake Total 615 ml 1140 ml Balance 615 ml 1140 ml Intake Oral 240 ml 240 ml IV Total 375 ml 900 ml # Voids 2 3 Height (Feet): 5 Height (Inches): 8.00 Weight (Pounds): 127 General Appearance: alert, other - anxious Cardiovascular: tachycardia Respiratory/Chest: decreased breath sounds Abdomen: soft Objective other PE not changed MINA JOSE Aug 16, 2016 12:07
--- NOTE | 2016-08-16 12:56 | Pulmonology Progress Note ---
Assessment/Plan Assessment/Plan ASSESSMENT sepsis UTI ARF on CKD bilateral urethral stents bilateral hydronephrosis ( severe left and moderate to severe right) severe left hydroureter COPD r/o masslike lesion right upper pole severe anemia s/p blood transfusion hypokalemia-persistent hx of cervical Ca with radiation metabolic acidosis elevated CEA PLAN OF CARE [place] floor abdominal CT and abdominal US revealed bilateral hydronephrosis , nephro follows need HD but declining, monitor renal parameters, lytes avoid nephrotoxic on Bicitra PhosLo binder dose increased abx , on dc Amoxicillin as per iD IVF O2, HHN prn DVT, GI prophylaxis seen by urologist, declined stent replacement pain manageetmn bowel regimen add Folic acid ( low folate level) check stool OB abdominal IS with hypoechoic focus R upper pole kidney, mass not excludable, recommended MRI - per nephro discretion had a long discussion with the patient. patient wants to go to [facility] since her PMD is there for further management unable to leave till Wednesday her sister will be back Wednesday night stat PT eval done- recommended SNF got SOB and HR up to 120 with ambulation dc plan to SNF refusing all treatment case discussed and evaluated by supervising physician Subjective Allergies: Coded Allergies: No Known Allergies (Unverified , 08/10/16) Subjective refused labs today claiming she is weak, unable to walk Objective Last 24 Hour Vital Signs Date Time Temp Pulse Resp B/P Pulse Ox O2 Delivery O2 Flow Rate FiO2 08/16/16 08:00 98.6 120 20 145/98 97 Room Air 08/16/16 04:00 98.0 117 18 138/94 97 Room Air 08/16/16 00:00 97.7 113 20 133/93 97 Room Air 08/15/16 22:01 97.9 100 20 148/73 96 Room Air 08/15/16 20:00 97.9 100 20 148/73 96 Room Air 08/15/16 16:10 97.7 112 22 130/97 96 Room Air 08/15/16 13:22 135/105 Intake and Output 08/15/16 08/16/16 19:00 07:00 Intake Total 615 ml 1140 ml Balance 615 ml 1140 ml Intake Oral 240 ml 240 ml IV Total 375 ml 900 ml # Voids 2 3 Objective General Appearance: no acute distress, cachetic HEENT: normocephalic, atraumatic, anicteric Respiratory/Chest: lungs clear, no respiratory distress, no accessory muscle use Cardiovascular: normal rate, regular rhythm, no JVD Abdomen: normal bowel sounds, soft, non tender, non distended Genitourinary: normal external genitalia Extremities: no edema, pedal pulses normal Neurologic/Psychiatric: alert, responsive Musculoskeletal: normal muscle bulk Current Medications Medications (Trade) Dose Ordered Sig/Heaven Route PRN Reason Start Time Stop Time Status Last Admin Dose Admin Acetaminophen (Tylenol) 650 mg Q4H PRN ORAL fever 08/11/16 22:00 09/10/16 21:59 Albuterol/ Ipratropium (DuoNeb 0.5-3(2.5)mg/3ml) 3 ml Q4H PRN HHN Shortness of Breath 08/11/16 22:00 08/16/16 21:59 Ampicillin (Ampicillin) 500 mg Q12HR ORAL 08/13/16 21:00 08/20/16 20:59 08/16/16 08:15 Cefepime HCl 500 mg/Dextrose 55 ml @ 110 mls/hr Q24H IV 08/12/16 09:00 08/17/16 08:59 08/16/16 08:17 Docusate Sodium (Colace) 100 mg TID ORAL 08/12/16 09:00 09/11/16 08:59 08/16/16 11:43 Folic Acid (Folate) 1 mg DAILY ORAL 08/14/16 09:00 09/13/16 08:59 08/16/16 08:15 Heparin Sodium (Porcine) (Heparin 5000 units/ml) 5,000 units EVERY 12 HOURS SUBQ 08/11/16 23:00 09/10/16 22:59 08/16/16 08:19 Morphine Sulfate (Morphine Sulfate) 4 mg Q4H PRN IVP SEVERE PAIN 08/12/16 17:00 08/19/16 16:59 08/16/16 02:41 Nitroglycerin (Ntg) 0.4 mg Q5MIN X 3 DOSES PRN SL Prn Chest Pain 08/11/16 20:30 09/10/16 20:29 Ondansetron HCl (Zofran) 4 mg Q6H PRN IVP Nausea & Vomiting 08/11/16 22:00 09/10/16 21:59 Pantoprazole (Protonix) 40 mg BID ORAL 08/12/16 09:00 09/11/16 08:59 08/16/16 08:15 Polyethylene Glycol (Miralax) 17 gm DAILYPRN PRN ORAL Constipation 08/11/16 22:00 09/10/16 21:59 08/16/16 11:44 Sevelamer Carbonate (Renvela) 1,600 mg THREE TIMES A DAY ORAL 08/15/16 13:00 09/14/16 12:59 08/16/16 11:43 Sodium Chloride (Sodium Chloride 1000ml bag) 1,000 ml @ 75 mls/hr [id number] IVLG 08/11/16 22:00 09/10/16 21:59 08/16/16 08:17 Sodium Citrate (Bicitra) 30 ml TID ORAL 08/15/16 13:00 09/14/16 12:59 08/16/16 11:43 Temazepam (Restoril) 15 mg HSPRN PRN ORAL Insomnia 08/11/16 22:00 08/18/16 21:59 08/15/16 21:11 [facility]Alecia Torres NP Aug 16, 2016 12:56
[2016-08-16 16:00] VITALS: BP 127/95
[2016-08-16 20:00] VITALS: BP 123/95
[2016-08-16] MEDS ORDERED: Fleet's Mineral Oil Enema RECTAL PRN (20:15)
[2016-08-17] VITALS: BP 103/74
[2016-08-17 04:00] VITALS: BP 123/88
[2016-08-17] MEDS: Morphine Sulfate 4mg/ml Inj IVP PRN (04:19)
[2016-08-17 08:00] VITALS: BP 123/82
[2016-08-17 08:02] LABS: MEAN CORPUSCULAR HEMOGLOBIN 29.6 PG (27.0-31.0); MEAN CORPUSCULAR HGB CONC 33.2 G/DL (32.0-36.0); MEAN CORPUSCULAR VOLUME 89 FL (80-99); MEAN PLATELET VOLUME 4.5 FL (6.5-10.1); PLATELET COUNT 470 K/UL (150-450); RED BLOOD COUNT 3.99 M/UL (4.20-5.40); RED CELL DISTRIBUTION WIDTH 15.6 % (11.6-14.8); WHITE BLOOD COUNT 12.4 K/UL (4.8-10.8)
[2016-08-17 08:24] LABS: ALANINE AMINOTRANSFERASE < 5 U/L (3-33); ALBUMIN/GLOBULIN RATIO 0.6 (1.0-2.7); ANION GAP 23 (5-15); ASPARTATE AMINO TRANSFERASE 9 U/L (5-40); CALCIUM 8.5 mg/dL (8.6-10.2); CARBON DIOXIDE 18 mEQ/L (20-30); CHLORIDE 95 mEQ/L (98-107); CREATININE 4.5 mg/dL (0.5-0.9); HEMOLYSIS 4; MAGNESIUM 1.7 mg/dL (1.7-2.5); PHOSPHORUS 4.5 mg/dL (2.5-4.8); POTASSIUM 3.7 mEQ/L (3.4-4.9); SODIUM 136 mEQ/L (135-145); TOTAL PROTEIN 5.6 g/dL (6.6-8.7); URIC ACID 6.5 mg/dL (3.0-7.5)
[2016-08-17] MEDS: Sodium Citrate 30ml ORAL SCH ×3 (08:59→19:08)
[2016-08-17] MEDS: Heparin 5000 units/ml inj SUBQ SCH ×2 (09:00→20:36)
[2016-08-17] MEDS: Docusate 100mg tablet ORAL SCH ×3 (09:00→19:09)
--- NOTE | 2016-08-17 10:37 | Infectious Diseases Prog Note ---
Assessment/Plan Assessment/Plan ASSESSMENT: 60-year-old female with: Recurrent complicated VSE.faecalis UTI / cystitis - urology following, pending possible stent change ( in place since april ) CT: severe right hydronephrosis suggestive of stent malfunction, severe left hydronephrosis and hydroureter, and bladder wall thickening suggestive of cystitis. Leukocytosis - recurrent, mild, stable, afebrile ARF on CKD - improved Possible renal mass Anemia Thrombocytosis SP History of cervical cancer SP chemo and radiation Deconditioning NKDA Full Code PLAN: continue cefepime d # 7 / , ampicillin d# 4 / . Ok to complete course with PO amoxicillin at discharge ( 08/13 SP zyvox d# 2 ) stent change - [facility] vs [facility] f/u final cultures Monitor CBC, temperatures Monitor BMP. Urology following Subjective Allergies: Coded Allergies: No Known Allergies (Unverified , 08/10/16) Subjective remains afebrile. no new complaint DC planning ongoing Objective Vital Signs Last 24 Hour Vital Signs Date Time Temp Pulse Resp B/P Pulse Ox O2 Delivery O2 Flow Rate FiO2 08/17/16 08:00 97.7 114 18 123/82 97 Room Air 08/17/16 04:00 97.9 109 19 123/88 97 Room Air 08/17/16 00:00 97.7 103 18 103/74 99 Room Air 08/16/16 20:00 97.7 114 18 123/95 96 Room Air 08/16/16 16:00 97.2 110 19 127/95 94 Room Air 08/16/16 12:00 96.4 121 19 129/98 99 Room Air Height (Feet): 5 Height (Inches): 8.00 Weight (Pounds): 127 General Appearance: no acute distress Respiratory/Chest: no respiratory distress Cardiovascular: normal rate, regular rhythm Abdomen: normal bowel sounds, soft, non tender, non distended Laboratory Tests Test 08/17/16 07:15 White Blood Count 12.4 K/UL (4.8-10.8) H Red Blood Count 3.99 M/UL (4.20-5.40) L Hemoglobin 11.8 G/DL (12.0-16.0) L Hematocrit 35.6 % (37.0-47.0) L Mean Corpuscular Volume 89 FL (80-99) Mean Corpuscular Hemoglobin 29.6 PG (27.0-31.0) Mean Corpuscular Hemoglobin Concent 33.2 G/DL (32.0-36.0) Red Cell Distribution Width 15.6 % (11.6-14.8) H Platelet Count 470 K/UL (150-450) H Mean Platelet Volume 4.5 FL (6.5-10.1) L Neutrophils (%) (Auto) % (45.0-75.0) Lymphocytes (%) (Auto) % (20.0-45.0) Monocytes (%) (Auto) % (1.0-10.0) Eosinophils (%) (Auto) % (0.0-3.0) Basophils (%) (Auto) % (0.0-2.0) Neutrophils % (Manual) Pending Lymphocytes % (Manual) Pending Platelet Estimate Pending Platelet Morphology Pending Sodium Level 136 mEQ/L (135-145) Potassium Level 3.7 mEQ/L (3.4-4.9) Chloride Level 95 mEQ/L (98-107) L Carbon Dioxide Level 18 mEQ/L (20-30) L Anion Gap 23 (5-15) H Blood Urea Nitrogen 69 mg/dL (7-23) H Creatinine 4.5 mg/dL (0.5-0.9) H Estimat Glomerular Filtration Rate 10.0 mL/min (>60) Glucose Level 120 mg/dL (74-106) H Uric Acid 6.5 mg/dL (3.0-7.5) Calcium Level 8.5 mg/dL (8.6-10.2) L Phosphorus Level 4.5 mg/dL (2.5-4.8) Magnesium Level 1.7 mg/dL (1.7-2.5) Total Bilirubin 0.4 mg/dL (0.0-1.2) Aspartate Amino Transf (AST/SGOT) 9 U/L (5-40) Alanine Aminotransferase (ALT/SGPT) < 5 U/L (3-33) Alkaline Phosphatase 82 U/L (35-104) Total Protein 5.6 g/dL (6.6-8.7) L Albumin 2.2 g/dL (3.5-5.2) L Globulin 3.4 g/dL Albumin/Globulin Ratio 0.6 (1.0-2.7) L Current Medications Medications (Trade) Dose Ordered Sig/Heaven Route PRN Reason Start Time Stop Time Status Last Admin Dose Admin Acetaminophen (Tylenol) 650 mg Q4H PRN ORAL fever 08/11/16 22:00 09/10/16 21:59 Ampicillin (Ampicillin) 500 mg Q12HR ORAL 08/13/16 21:00 08/20/16 20:59 08/17/16 08:59 Docusate Sodium (Colace) 100 mg TID ORAL 08/12/16 09:00 09/11/16 08:59 08/16/16 16:49 Folic Acid (Folate) 1 mg DAILY ORAL 08/14/16 09:00 09/13/16 08:59 08/17/16 08:59 Heparin Sodium (Porcine) (Heparin 5000 units/ml) 5,000 units EVERY 12 HOURS SUBQ 08/11/16 23:00 09/10/16 22:59 08/17/16 09:00 Mineral Oil (Fleet's Mineral Oil Enema) 133 ml DAILYPRN PRN RECTAL Constipation 08/16/16 20:15 09/15/16 20:14 Morphine Sulfate (Morphine Sulfate) 4 mg Q4H PRN IVP SEVERE PAIN 08/12/16 17:00 08/19/16 16:59 08/17/16 04:19 Nitroglycerin (Ntg) 0.4 mg Q5MIN X 3 DOSES PRN SL Prn Chest Pain 08/11/16 20:30 09/10/16 20:29 Ondansetron HCl (Zofran) 4 mg Q6H PRN IVP Nausea & Vomiting 08/11/16 22:00 09/10/16 21:59 Pantoprazole (Protonix) 40 mg BID ORAL 08/12/16 09:00 09/11/16 08:59 08/17/16 09:00 Polyethylene Glycol (Miralax) 17 gm DAILYPRN PRN ORAL Constipation 08/11/16 22:00 09/10/16 21:59 08/16/16 11:44 Sevelamer Carbonate (Renvela) 1,600 mg THREE TIMES A DAY ORAL 08/15/16 13:00 09/14/16 12:59 08/17/16 09:12 Sodium Chloride (Sodium Chloride 1000ml bag) 1,000 ml @ 75 mls/hr [id number] IVLG 08/11/16 22:00 09/10/16 21:59 08/17/16 04:19 Sodium Citrate (Bicitra) 30 ml TID ORAL 08/15/16 13:00 09/14/16 12:59 08/17/16 08:59 Temazepam (Restoril) 15 mg HSPRN PRN ORAL Insomnia 08/11/16 22:00 08/18/16 21:59 08/15/16 21:11 MAIKOL LOONEY Aug 17, 2016 10:37
[2016-08-17 10:51] LABS: ANISOCYTOSIS 1+; BAND NEUTROPHILS % (MANUAL) 1 % (0-8); BASOPHILS % (MANUAL) 0 % (0-2); EOSINOPHILS % (MANUAL) 1 % (0-3); LYMPHOCYTES % (MANUAL) 6 % (20-45); NEUTROPHILS % (MANUAL) 86 % (45-75); PLATELET ESTIMATE ADEQUATE; PLATELET MORPHOLOGY NORMAL; TOTAL CELLS COUNTED 100
--- NOTE | 2016-08-17 11:26 | Diagnostic Imaging Report ---
Indication: Constipation and rectal bleeding Technique: Supine view of the abdomen Comparison: Statistician Theoretical image from CT scan dated 08/10/2016 Findings: Considerable gas is seen in the colon which is upper limits normal in caliber, and small bowel, is which is borderline distended. There is suggestion of wall thickening and featurelessness of the distal colon There is lumbar scoliotic deformity. There is nephroureteral stent. No unusual masses or calcifications.. Impression: Borderline dilated small bowel loops, could indicate ileus or partial small bowel obstruction Gas-filled upper limits of normal colonic caliber, nonspecific. Featurelessness of the distal colonic mucosa raises possibility of colitis. Correlate with clinical findings
[2016-08-17 12:00] VITALS: BP 130/83
--- NOTE | 2016-08-17 13:54 | General Progress Note ---
Assessment/Plan Status: stable Status Narrative Cr lower 4.5 Assessment/Plan status; Renal failure- Likely acute on chronic- h/o Bilateral hydro, requiring stents by urology. history of cervical cancer, status post radiation therapy Severe Anemia Metabolic acidosis UTI Plan: as is- DC planning- explained to patient in details the transfer situation and rules to other hospitals. Transfused previously- Uro eval- appreciated monitor renal parameters Avoid nephrotoxics Bicitra increase Phos binders renal diet antibiotics kidneyUTZ: Right hydronephrosis, moderate to severe. Right nephroureteral stent in place. Persistent hydronephrosis raises concern for stent malfunction. Echogenic focus within the right upper pole renal collecting system. Suspect this represents debris, but mass not excludable. MRI may be useful to clarify, clinically indicated. Retrograde ureterography could also be useful. Severe left hydronephrosis, with profound loss of renal parenchyma, presumably long-standing Debris within the bladder Subjective ROS Limited/Unobtainable: No Constitutional: Reports: malaise Allergies: Coded Allergies: No Known Allergies (Unverified , 08/10/16) Objective Last 24 Hour Vital Signs Date Time Temp Pulse Resp B/P Pulse Ox O2 Delivery O2 Flow Rate FiO2 08/17/16 12:00 97.9 109 18 130/83 97 Room Air 08/17/16 08:00 97.7 114 18 123/82 97 Room Air 08/17/16 04:00 97.9 109 19 123/88 97 Room Air 08/17/16 00:00 97.7 103 18 103/74 99 Room Air 08/16/16 20:00 97.7 114 18 123/95 96 Room Air 08/16/16 16:00 97.2 110 19 127/95 94 Room Air Intake and Output 08/16/16 08/17/16 19:00 07:00 Intake Total 1655 ml 1375 ml Balance 1655 ml 1375 ml Intake Oral 720 ml 550 ml IV Total 935 ml 825 ml # Voids 4 # Bowel Movements 3 Laboratory Tests 08/17/16 07:15: White Blood Count 12.4H, Red Blood Count 3.99L, Hemoglobin 11.8L, Hematocrit 35.6L, Mean Corpuscular Volume 89, Mean Corpuscular Hemoglobin 29.6, Mean Corpuscular Hemoglobin Concent 33.2, Red Cell Distribution Width 15.6H, Platelet Count 470H, Mean Platelet Volume 4.5L, Neutrophils (%) (Auto) , Lymphocytes (%) (Auto) , Monocytes (%) (Auto) , Eosinophils (%) (Auto) , Basophils (%) (Auto) , Differential Total Cells Counted 100, Neutrophils % ( Manual) 86H, Lymphocytes % (Manual) 6L, Monocytes % (Manual) 6, Eosinophils % ( Manual) 1, Basophils % (Manual) 0, Band Neutrophils 1, Platelet Estimate Adequate, Platelet Morphology Normal, Anisocytosis 1+, Sodium Level 136, Potassium Level 3.7, Chloride Level 95L, Carbon Dioxide Level 18L, Anion Gap 23H , Blood Urea Nitrogen 69H, Creatinine 4.5H, Estimat Glomerular Filtration Rate 10.0, Glucose Level 120H, Uric Acid 6.5, Calcium Level 8.5L, Phosphorus Level 4.5, Magnesium Level 1.7, Total Bilirubin 0.4, Aspartate Amino Transf (AST/SGOT ) 9, Alanine Aminotransferase (ALT/SGPT) < 5, Alkaline Phosphatase 82, Total Protein 5.6L, Albumin 2.2L, Globulin 3.4, Albumin/Globulin Ratio 0.6L Height (Feet): 5 Height (Inches): 8.00 Weight (Pounds): 127 General Appearance: no apparent distress Objective other PE not changed MINA JOSE Aug 17, 2016 13:54
[2016-08-17 16:00] VITALS: BP 131/88
[2016-08-17 20:00] VITALS: BP 131/82
--- NOTE | 2016-08-17 23:27 | Pulmonology Progress Note ---
Assessment/Plan Problems: (1) Symptomatic anemia (2) ATN (acute tubular necrosis) (3) Hydronephrosis Subjective Allergies: Coded Allergies: No Known Allergies (Unverified , 08/10/16) Objective Last 24 Hour Vital Signs Date Time Temp Pulse Resp B/P Pulse Ox O2 Delivery O2 Flow Rate FiO2 08/17/16 20:00 97.7 85 22 131/82 95 Room Air 08/17/16 16:00 97.7 106 22 131/88 97 Room Air 08/17/16 12:00 97.9 109 18 130/83 97 Room Air 08/17/16 08:00 97.7 114 18 123/82 97 Room Air 08/17/16 04:00 97.9 109 19 123/88 97 Room Air 08/17/16 00:00 97.7 103 18 103/74 99 Room Air Intake and Output 08/16/16 08/17/16 19:00 07:00 Intake Total 1655 ml 1375 ml Balance 1655 ml 1375 ml Intake Oral 720 ml 550 ml IV Total 935 ml 825 ml # Voids 4 # Bowel Movements 3 Laboratory Tests 08/17/16 07:15: White Blood Count 12.4H, Red Blood Count 3.99L, Hemoglobin 11.8L, Hematocrit 35.6L, Mean Corpuscular Volume 89, Mean Corpuscular Hemoglobin 29.6, Mean Corpuscular Hemoglobin Concent 33.2, Red Cell Distribution Width 15.6H, Platelet Count 470H, Mean Platelet Volume 4.5L, Neutrophils (%) (Auto) , Lymphocytes (%) (Auto) , Monocytes (%) (Auto) , Eosinophils (%) (Auto) , Basophils (%) (Auto) , Differential Total Cells Counted 100, Neutrophils % ( Manual) 86H, Lymphocytes % (Manual) 6L, Monocytes % (Manual) 6, Eosinophils % ( Manual) 1, Basophils % (Manual) 0, Band Neutrophils 1, Platelet Estimate Adequate, Platelet Morphology Normal, Anisocytosis 1+, Sodium Level 136, Potassium Level 3.7, Chloride Level 95L, Carbon Dioxide Level 18L, Anion Gap 23H , Blood Urea Nitrogen 69H, Creatinine 4.5H, Estimat Glomerular Filtration Rate 10.0, Glucose Level 120H, Uric Acid 6.5, Calcium Level 8.5L, Phosphorus Level 4.5, Magnesium Level 1.7, Total Bilirubin 0.4, Aspartate Amino Transf (AST/SGOT ) 9, Alanine Aminotransferase (ALT/SGPT) < 5, Alkaline Phosphatase 82, Total Protein 5.6L, Albumin 2.2L, Globulin 3.4, Albumin/Globulin Ratio 0.6L Current Medications Medications (Trade) Dose Ordered Sig/Heaven Route PRN Reason Start Time Stop Time Status Last Admin Dose Admin Acetaminophen (Tylenol) 650 mg Q4H PRN ORAL fever 08/11/16 22:00 09/10/16 21:59 Ampicillin (Ampicillin) 500 mg Q12HR ORAL 08/13/16 21:00 08/20/16 20:59 08/17/16 20:37 Docusate Sodium (Colace) 100 mg TID ORAL 08/12/16 09:00 09/11/16 08:59 08/16/16 16:49 Folic Acid (Folate) 1 mg DAILY ORAL 08/14/16 09:00 09/13/16 08:59 08/17/16 08:59 Heparin Sodium (Porcine) (Heparin 5000 units/ml) 5,000 units EVERY 12 HOURS SUBQ 08/11/16 23:00 09/10/16 22:59 08/17/16 20:36 Mineral Oil (Fleet's Mineral Oil Enema) 133 ml DAILYPRN PRN RECTAL Constipation 08/16/16 20:15 09/15/16 20:14 Morphine Sulfate (Morphine Sulfate) 4 mg Q4H PRN IVP SEVERE PAIN 08/12/16 17:00 08/19/16 16:59 08/17/16 04:19 Nitroglycerin (Ntg) 0.4 mg Q5MIN X 3 DOSES PRN SL Prn Chest Pain 08/11/16 20:30 09/10/16 20:29 Ondansetron HCl (Zofran) 4 mg Q6H PRN IVP Nausea & Vomiting 08/11/16 22:00 09/10/16 21:59 Pantoprazole (Protonix) 40 mg BID ORAL 08/12/16 09:00 09/11/16 08:59 08/17/16 19:08 Polyethylene Glycol (Miralax) 17 gm DAILYPRN PRN ORAL Constipation 08/11/16 22:00 09/10/16 21:59 08/16/16 11:44 Sevelamer Carbonate (Renvela) 1,600 mg THREE TIMES A DAY ORAL 08/15/16 13:00 09/14/16 12:59 08/17/16 19:08 Sodium Chloride (Sodium Chloride 1000ml bag) 1,000 ml @ 75 mls/hr [id number] IVLG 08/11/16 22:00 09/10/16 21:59 08/17/16 04:19 Sodium Citrate (Bicitra) 30 ml TID ORAL 08/15/16 13:00 09/14/16 12:59 08/17/16 19:08 Temazepam (Restoril) 15 mg HSPRN PRN ORAL Insomnia 08/11/16 22:00 08/18/16 21:59 08/15/16 21:11 ABA GOMEZ Aug 17, 2016 23:27
[2016-08-18] VITALS: BP 122/72
[2016-08-18] MEDS: Morphine Sulfate 4mg/ml Inj IVP PRN ×3 (01:33→20:29)
[2016-08-18 04:00] VITALS: BP 128/76
[2016-08-18 08:20] VITALS: BP 130/80
[2016-08-18] MEDS: Docusate 100mg tablet ORAL SCH ×3 (08:48→19:00)
[2016-08-18] MEDS: Sodium Citrate 30ml ORAL SCH ×3 (08:48→19:00)
[2016-08-18] MEDS: Heparin 5000 units/ml inj SUBQ SCH ×2 (08:51→20:27)
--- NOTE | 2016-08-18 10:52 | Infectious Diseases Prog Note ---
Assessment/Plan Assessment/Plan ASSESSMENT: 60-year-old female with: Recurrent complicated VSE.faecalis UTI / cystitis - urology following, pending possible stent change ( in place since april ) CT: severe right hydronephrosis suggestive of stent malfunction, severe left hydronephrosis and hydroureter, and bladder wall thickening suggestive of cystitis. Leukocytosis - recurrent, mild, stable, afebrile. No repeat CBC ARF on CKD - improved Possible renal mass Anemia Thrombocytosis SP History of cervical cancer SP chemo and radiation Deconditioning NKDA Full Code PLAN: continue cefepime d # 8 / 10, ampicillin d# 5 / 10 while still inpt. Ok to complete course with PO amoxicillin at discharge ( 08/13 SP zyvox d# 2 ) stent change - [facility] vs [facility] f/u final cultures Monitor CBC, temperatures Monitor BMP. Urology following PT Subjective Allergies: Coded Allergies: No Known Allergies (Unverified , 08/10/16) Subjective remains afebrile. no new complaint DC planning ongoing Objective Vital Signs Last 24 Hour Vital Signs Date Time Temp Pulse Resp B/P Pulse Ox O2 Delivery O2 Flow Rate FiO2 08/18/16 08:20 97.5 88 19 130/80 95 Room Air 08/18/16 04:00 97.6 99 18 128/76 96 Room Air 08/18/16 00:00 97.7 100 18 122/72 96 Room Air 08/17/16 20:00 97.7 85 22 131/82 95 Room Air 08/17/16 16:00 97.7 106 22 131/88 97 Room Air 08/17/16 12:00 97.9 109 18 130/83 97 Room Air Height (Feet): 5 Height (Inches): 8.00 Weight (Pounds): 127 General Appearance: no acute distress Respiratory/Chest: no respiratory distress Cardiovascular: normal rate, regular rhythm Abdomen: normal bowel sounds, soft, non tender, non distended Current Medications Medications (Trade) Dose Ordered Sig/Heaven Route PRN Reason Start Time Stop Time Status Last Admin Dose Admin Acetaminophen (Tylenol) 650 mg Q4H PRN ORAL fever 08/11/16 22:00 09/10/16 21:59 Ampicillin (Ampicillin) 500 mg Q12HR ORAL 08/13/16 21:00 08/20/16 20:59 08/18/16 08:48 Docusate Sodium (Colace) 100 mg TID ORAL 08/12/16 09:00 09/11/16 08:59 08/18/16 08:48 Folic Acid (Folate) 1 mg DAILY ORAL 08/14/16 09:00 09/13/16 08:59 08/18/16 08:49 Heparin Sodium (Porcine) (Heparin 5000 units/ml) 5,000 units EVERY 12 HOURS SUBQ 08/11/16 23:00 09/10/16 22:59 08/18/16 08:51 Mineral Oil (Fleet's Mineral Oil Enema) 133 ml DAILYPRN PRN RECTAL Constipation 08/16/16 20:15 09/15/16 20:14 Morphine Sulfate (Morphine Sulfate) 4 mg Q4H PRN IVP SEVERE PAIN 08/12/16 17:00 08/19/16 16:59 08/18/16 01:33 Nitroglycerin (Ntg) 0.4 mg Q5MIN X 3 DOSES PRN SL Prn Chest Pain 08/11/16 20:30 09/10/16 20:29 Ondansetron HCl (Zofran) 4 mg Q6H PRN IVP Nausea & Vomiting 08/11/16 22:00 09/10/16 21:59 Pantoprazole (Protonix) 40 mg BID ORAL 08/12/16 09:00 09/11/16 08:59 08/18/16 08:49 Polyethylene Glycol (Miralax) 17 gm DAILYPRN PRN ORAL Constipation 08/11/16 22:00 09/10/16 21:59 08/16/16 11:44 Sevelamer Carbonate (Renvela) 1,600 mg THREE TIMES A DAY ORAL 08/15/16 13:00 09/14/16 12:59 08/18/16 08:49 Sodium Chloride (Sodium Chloride 1000ml bag) 1,000 ml @ 75 mls/hr [id number] IVLG 08/11/16 22:00 09/10/16 21:59 08/18/16 01:29 Sodium Citrate (Bicitra) 30 ml TID ORAL 08/15/16 13:00 09/14/16 12:59 08/18/16 08:48 Temazepam (Restoril) 15 mg HSPRN PRN ORAL Insomnia 08/11/16 22:00 08/18/16 21:59 08/15/16 21:11 MAIKOL OLONEY Aug 18, 2016 10:52
--- NOTE | 2016-08-18 11:06 | General Progress Note ---
Assessment/Plan Status: stable Assessment/Plan status; Renal failure- Likely acute on chronic- h/o Bilateral hydro, requiring stents by urology. history of cervical cancer, status post radiation therapy Severe Anemia Metabolic acidosis UTI Plan: no labs today as is- DC planning- Transfused previously- Uro eval- appreciated monitor renal parameters Avoid nephrotoxics Bicitra increase Phos binders renal diet antibiotics kidneyUTZ: Right hydronephrosis, moderate to severe. Right nephroureteral stent in place. Persistent hydronephrosis raises concern for stent malfunction. Echogenic focus within the right upper pole renal collecting system. Suspect this represents debris, but mass not excludable. MRI may be useful to clarify, clinically indicated. Retrograde ureterography could also be useful. Severe left hydronephrosis, with profound loss of renal parenchyma, presumably long-standing Debris within the bladder Subjective ROS Limited/Unobtainable: No Constitutional: Reports: malaise Allergies: Coded Allergies: No Known Allergies (Unverified , 08/10/16) Objective Last 24 Hour Vital Signs Date Time Temp Pulse Resp B/P Pulse Ox O2 Delivery O2 Flow Rate FiO2 08/18/16 08:20 97.5 88 19 130/80 95 Room Air 08/18/16 04:00 97.6 99 18 128/76 96 Room Air 08/18/16 00:00 97.7 100 18 122/72 96 Room Air 08/17/16 20:00 97.7 85 22 131/82 95 Room Air 08/17/16 16:00 97.7 106 22 131/88 97 Room Air 08/17/16 12:00 97.9 109 18 130/83 97 Room Air Intake and Output 08/17/16 08/18/16 19:00 07:00 Intake Total 1305 ml 360 ml Balance 1305 ml 360 ml Intake Oral 480 ml 360 ml IV Total 825 ml # Voids 4 4 Height (Feet): 5 Height (Inches): 8.00 Weight (Pounds): 127 General Appearance: no apparent distress Objective other PE not changed MINA JOSE Aug 18, 2016 11:06
[2016-08-18 12:25] VITALS: BP 111/87
[2016-08-18] MEDS ORDERED: Miralax 17gm pkt ORAL PRN (14:00)
[2016-08-18 16:00] VITALS: BP 122/93
--- NOTE | 2016-08-18 17:03 | Diagnostic Imaging Report ---
Indication: Abdominal pain Technique: 2 views of the abdomen Comparison: 08/16/2016 Findings: Again demonstrated is extensive gas throughout the colon, which is upper limits of normal in caliber but not frankly dilated. Again demonstrated is extensive small bowel gas. Degree of distention difficult to assess, but appears similar to the previous exam and likely diffusely distended. No worrisome air-fluid levels or evidence of free intraperitoneal air. Right nephroureteral stent is again demonstrated. Thoracal lumbar scoliotic deformity is again demonstrated. There is elevation of the left hemidiaphragm, presumably due in part to the bowel distention and in part to the scoliotic deformity. Impression: Distended gas-filled small bowel, gas-filled upper limits normal caliber colon, appearing similar to previous study of 08/16/2016, and greater than earlier CT of 08/10/2016 findings most likely represent diffuse ileus, although distal small bowel or distal colonic obstruction not completely excludable. Other stable findings as described
[2016-08-18] MEDS: Lactulose 10gm/15ml UDC ORAL SCH (19:00)
[2016-08-18 20:00] VITALS: BP 143/68
[2016-08-18] MEDS: Cefepime HCl 500 MG in D5W 55 ML IV SCH (20:28)
--- NOTE | 2016-08-18 21:49 | Consultation ---
DATE OF CONSULTATION: 08/18/2016 CHIEF COMPLAINT: Abdominal pain, abdominal distention and constipation. HISTORY OF PRESENT ILLNESS: This is a 60-year-old female with past medical history of uterine malignancy currently on treatment, who was admitted to the hospital. The patient is complaining of abdominal pain and constipation, so GI consult was requested for evaluation. PAST MEDICAL HISTORY: 1. History of hypertension. 2. History of cervical cancer, currently on treatment. 3. History of right kidney stent placement for urinary tract infection. ALLERGIES: No known drug allergies. MEDICATIONS: Please see medication reconciliation list. SOCIAL HISTORY: The patient denies any tobacco, alcohol, or drug abuse. FAMILY HISTORY: Noncontributory. REVIEW OF SYSTEMS: A 10-point review of system was performed and pertinent positives in history of present illness. PHYSICAL EXAMINATION: GENERAL: This is a well-developed female, in no acute distress. VITAL SIGNS: Temperature 97.9 degrees, pulse 102, respirations 18, and blood pressure is 111/87. HEENT: Normocephalic and atraumatic. Sclerae icterus. NECK: Supple. No evidence of lymphadenopathy. CARDIOVASCULAR: Regular rate and rhythm. Plus S1 and S2. LUNGS: Clear to auscultation bilaterally. ABDOMEN: Soft and mildly distended. Mildly tympanic to percussion. Bowel sounds are hypoactive. No rebound. No guarding. No peritoneal sign. EXTREMITIES: No cyanosis. No clubbing. No edema. LABORATORY DATA: White count is 12.4, hemoglobin 11.8, hematocrit 35, and platelet count is 470,000. ASSESSMENT: This is an unfortunate [id number] with cervical malignancy on treatment. PLAN: Plan to start the patient on laxative for constipation, Colace, MiraLax and lactulose. We are also going to order a KUB. If the patient does not have a bowel movement tomorrow, we will consider adding Dulcolax and more aggressive laxatives. The patient was offered to have an endoscopy and colonoscopy for workup of anemia, but at this time she does not want it. Bryce Evans M.D. DR: HENRY JOB#: [id number] CC:
[2016-08-19] VITALS: BP 119/97
[2016-08-19] MEDS: Morphine Sulfate 4mg/ml Inj IVP PRN ×2 (00:40→12:29)
[2016-08-19 04:00] VITALS: BP 117/83
[2016-08-19 06:46] LABS: BASOPHILS % (AUTO) 0.6 % (0.0-2.0); EOSINOPHILS % (AUTO) 0.8 % (0.0-3.0); LYMPHOCYTES % (AUTO) 6.4 % (20.0-45.0); MEAN CORPUSCULAR HEMOGLOBIN 29.2 PG (27.0-31.0); MEAN CORPUSCULAR VOLUME 91 FL (80-99); MEAN PLATELET VOLUME 4.6 FL (6.5-10.1); MONOCYTES % (AUTO) 8.5 % (1.0-10.0); NEUTROPHILS % (AUTO) 83.7 % (45.0-75.0); PLATELET COUNT 418 K/UL (150-450); RED BLOOD COUNT 3.56 M/UL (4.20-5.40); RED CELL DISTRIBUTION WIDTH 15.8 % (11.6-14.8); WHITE BLOOD COUNT 8.7 K/UL (4.8-10.8)
[2016-08-19 07:04] LABS: ALBUMIN/GLOBULIN RATIO 0.7 (1.0-2.7); CALCIUM 8.5 mg/dL (8.6-10.2); CREATININE 4.1 mg/dL (0.5-0.9); GLOMERULAR FILTRATION RATE 11.1 mL/min (>60); MAGNESIUM 1.7 mg/dL (1.7-2.5); POTASSIUM 3.7 mEQ/L (3.4-4.9); TOTAL PROTEIN 5.6 g/dL (6.6-8.7)
[2016-08-19 08:00] VITALS: BP 119/76
[2016-08-19] MEDS: Docusate 100mg tablet ORAL SCH ×3 (09:15→17:48)
[2016-08-19] MEDS: Sodium Citrate 30ml ORAL SCH ×3 (09:15→17:48)
[2016-08-19] MEDS: Heparin 5000 units/ml inj SUBQ SCH ×2 (09:18→20:06)
[2016-08-19] MEDS: Lactulose 10gm/15ml UDC ORAL SCH ×3 (09:25→17:48)
--- NOTE | 2016-08-19 09:34 | General Progress Note ---
Assessment/Plan Status: stable Status Narrative Cr lower 4.1 Assessment/Plan status; Renal failure- Likely acute on chronic- h/o Bilateral hydro, requiring stents by urology. history of cervical cancer, status post radiation therapy Severe Anemia Metabolic acidosis UTI Plan: DC planning- Transfused previously- Uro eval- appreciated monitor renal parameters Avoid nephrotoxics Bicitra Phos binders renal diet antibiotics kidneyUTZ: Right hydronephrosis, moderate to severe. Right nephroureteral stent in place. Persistent hydronephrosis raises concern for stent malfunction. Echogenic focus within the right upper pole renal collecting system. Suspect this represents debris, but mass not excludable. MRI may be useful to clarify, clinically indicated. Retrograde ureterography could also be useful. Severe left hydronephrosis, with profound loss of renal parenchyma, presumably long-standing Debris within the bladder Subjective ROS Limited/Unobtainable: No Constitutional: Reports: malaise Allergies: Coded Allergies: No Known Allergies (Unverified , 08/10/16) Objective Last 24 Hour Vital Signs Date Time Temp Pulse Resp B/P Pulse Ox O2 Delivery O2 Flow Rate FiO2 08/19/16 08:00 98.1 111 20 119/76 96 Room Air 08/19/16 04:00 97.9 101 18 117/83 98 Room Air 08/19/16 01:31 97.2 08/19/16 00:00 98.2 108 20 119/97 97 Room Air 08/18/16 20:00 97.7 65 20 143/68 97 Room Air 08/18/16 16:00 97.2 104 22 122/93 96 Room Air 08/18/16 12:25 97.9 103 18 111/87 97 Room Air Intake and Output 08/18/16 08/19/16 19:00 07:00 Intake Total 1290 ml 1050 ml Balance 1290 ml 1050 ml Intake Oral 390 ml 240 ml IV Total 900 ml 810 ml # Voids 1 5 Laboratory Tests 08/19/16 05:25: White Blood Count 8.7, Red Blood Count 3.56L, Hemoglobin 10.4L, Hematocrit 32.6L , Mean Corpuscular Volume 91, Mean Corpuscular Hemoglobin 29.2, Mean Corpuscular Hemoglobin Concent 32.0, Red Cell Distribution Width 15.8H, Platelet Count 418, Mean Platelet Volume 4.6L, Neutrophils (%) (Auto) 83.7H, Lymphocytes (%) (Auto) 6.4L, Monocytes (%) (Auto) 8.5, Eosinophils (%) (Auto) 0.8, Basophils (%) (Auto) 0.6, Sodium Level 135, Potassium Level 3.7, Chloride Level 94L, Carbon Dioxide Level 20, Anion Gap 21H, Blood Urea Nitrogen 62H, Creatinine 4.1H, Estimat Glomerular Filtration Rate 11.1, Glucose Level 123H, Uric Acid 6.0, Calcium Level 8.5L, Phosphorus Level 4.0, Magnesium Level 1.7, Total Bilirubin 0.6, Aspartate Amino Transf (AST/SGOT) 11, Alanine Aminotransferase (ALT/SGPT) 7, Alkaline Phosphatase 138H, Total Protein 5.6L, Albumin 2.4L, Globulin 3.2, Albumin/Globulin Ratio 0.7L Height (Feet): 5 Height (Inches): 8.00 Weight (Pounds): 127 General Appearance: no apparent distress Cardiovascular: normal rate Abdomen: soft Objective other PE not changed MINA JOSE Aug 19, 2016 09:34
--- NOTE | 2016-08-19 10:13 | Infectious Diseases Prog Note ---
Assessment/Plan Assessment/Plan ASSESSMENT: 60-year-old female with: Recurrent complicated VSE.faecalis UTI / cystitis - urology following, pending possible stent change ( in place since april ) CT: severe right hydronephrosis suggestive of stent malfunction, severe left hydronephrosis and hydroureter, and bladder wall thickening suggestive of cystitis. Leukocytosis - resolved, afebrile ARF on CKD - improved Possible renal mass Constipation - declined GI procedures Anemia Thrombocytosis SP History of cervical cancer SP chemo and radiation Deconditioning NKDA Full Code PLAN: continue cefepime d # 9 / 10, ampicillin d# 6 / 10 while still inpt. Ok to complete course with PO amoxicillin at discharge ( 08/13 SP zyvox d# 2 ) stent change - [facility] vs [facility] f/u final cultures Monitor CBC, temperatures Monitor BMP. Urology following PT Subjective Allergies: Coded Allergies: No Known Allergies (Unverified , 08/10/16) Subjective remains afebrile. seen by GI, declined procedures DC planning ongoing Objective Vital Signs Last 24 Hour Vital Signs Date Time Temp Pulse Resp B/P Pulse Ox O2 Delivery O2 Flow Rate FiO2 08/19/16 08:00 98.1 111 20 119/76 96 Room Air 08/19/16 04:00 97.9 101 18 117/83 98 Room Air 08/19/16 01:31 97.2 08/19/16 00:00 98.2 108 20 119/97 97 Room Air 08/18/16 20:00 97.7 65 20 143/68 97 Room Air 08/18/16 16:00 97.2 104 22 122/93 96 Room Air 08/18/16 12:25 97.9 103 18 111/87 97 Room Air Height (Feet): 5 Height (Inches): 8.00 Weight (Pounds): 127 General Appearance: no acute distress Respiratory/Chest: no respiratory distress Cardiovascular: normal rate, regular rhythm Abdomen: normal bowel sounds, soft, non tender, non distended Laboratory Tests Test 08/19/16 05:25 White Blood Count 8.7 K/UL (4.8-10.8) Red Blood Count 3.56 M/UL (4.20-5.40) L Hemoglobin 10.4 G/DL (12.0-16.0) L Hematocrit 32.6 % (37.0-47.0) L Mean Corpuscular Volume 91 FL (80-99) Mean Corpuscular Hemoglobin 29.2 PG (27.0-31.0) Mean Corpuscular Hemoglobin Concent 32.0 G/DL (32.0-36.0) Red Cell Distribution Width 15.8 % (11.6-14.8) H Platelet Count 418 K/UL (150-450) Mean Platelet Volume 4.6 FL (6.5-10.1) L Neutrophils (%) (Auto) 83.7 % (45.0-75.0) H Lymphocytes (%) (Auto) 6.4 % (20.0-45.0) L Monocytes (%) (Auto) 8.5 % (1.0-10.0) Eosinophils (%) (Auto) 0.8 % (0.0-3.0) Basophils (%) (Auto) 0.6 % (0.0-2.0) Sodium Level 135 mEQ/L (135-145) Potassium Level 3.7 mEQ/L (3.4-4.9) Chloride Level 94 mEQ/L (98-107) L Carbon Dioxide Level 20 mEQ/L (20-30) Anion Gap 21 (5-15) H Blood Urea Nitrogen 62 mg/dL (7-23) H Creatinine 4.1 mg/dL (0.5-0.9) H Estimat Glomerular Filtration Rate 11.1 mL/min (>60) Glucose Level 123 mg/dL (74-106) H Uric Acid 6.0 mg/dL (3.0-7.5) Calcium Level 8.5 mg/dL (8.6-10.2) L Phosphorus Level 4.0 mg/dL (2.5-4.8) Magnesium Level 1.7 mg/dL (1.7-2.5) Total Bilirubin 0.6 mg/dL (0.0-1.2) Aspartate Amino Transf (AST/SGOT) 11 U/L (5-40) Alanine Aminotransferase (ALT/SGPT) 7 U/L (3-33) Alkaline Phosphatase 138 U/L (35-104) H Total Protein 5.6 g/dL (6.6-8.7) L Albumin 2.4 g/dL (3.5-5.2) L Globulin 3.2 g/dL Albumin/Globulin Ratio 0.7 (1.0-2.7) L Current Medications Medications (Trade) Dose Ordered Sig/Heaven Route PRN Reason Start Time Stop Time Status Last Admin Dose Admin Acetaminophen (Tylenol) 650 mg Q4H PRN ORAL fever 08/11/16 22:00 09/10/16 21:59 Ampicillin (Ampicillin) 500 mg Q12HR ORAL 08/13/16 21:00 08/20/16 20:59 08/19/16 09:15 Cefepime HCl/ Dextrose (Maxipime/D5W) 55 ml @ 110 mls/hr Q24H IV 08/18/16 21:00 08/19/16 23:59 08/18/16 20:28 Docusate Sodium (Colace) 100 mg TID ORAL 08/12/16 09:00 09/11/16 08:59 08/19/16 09:15 Folic Acid (Folate) 1 mg DAILY ORAL 08/14/16 09:00 09/13/16 08:59 08/19/16 09:15 Heparin Sodium (Porcine) (Heparin 5000 units/ml) 5,000 units EVERY 12 HOURS SUBQ 08/11/16 23:00 09/10/16 22:59 08/19/16 09:18 Lactulose 10 gm 10 gm THREE TIMES A DAY ORAL 08/18/16 18:00 09/17/16 17:59 08/19/16 09:25 Mineral Oil (Fleet's Mineral Oil Enema) 133 ml DAILYPRN PRN RECTAL Constipation 08/16/16 20:15 09/15/16 20:14 Morphine Sulfate (Morphine Sulfate) 4 mg Q4H PRN IVP SEVERE PAIN 08/12/16 17:00 08/19/16 16:59 08/19/16 00:40 Nitroglycerin (Ntg) 0.4 mg Q5MIN X 3 DOSES PRN SL Prn Chest Pain 08/11/16 20:30 09/10/16 20:29 Ondansetron HCl (Zofran) 4 mg Q6H PRN IVP Nausea & Vomiting 08/11/16 22:00 09/10/16 21:59 Pantoprazole (Protonix) 40 mg BID ORAL 08/12/16 09:00 09/11/16 08:59 08/19/16 09:15 Polyethylene Glycol (Miralax) 17 gm DAILYPRN PRN ORAL Constipation 08/18/16 14:00 09/17/16 13:59 Sevelamer Carbonate (Renvela) 1,600 mg THREE TIMES A DAY ORAL 08/15/16 13:00 09/14/16 12:59 08/19/16 09:15 Sodium Chloride (Sodium Chloride 1000ml bag) 1,000 ml @ 75 mls/hr [id number] IVLG 08/11/16 22:00 09/10/16 21:59 08/19/16 00:40 Sodium Citrate (Bicitra) 30 ml TID ORAL 08/15/16 13:00 09/14/16 12:59 08/19/16 09:15 MAIKOL LOONEY 22, 2017 10:13
--- NOTE | 2016-08-19 10:56 | General Progress Note ---
Assessment/Plan Problem List: (1) Anemia ICD Codes: D64.9 - Anemia, unspecified SNOMED: 741223491 (2) Ileus ICD Codes: K56.7 - Ileus, unspecified SNOMED: 241823297 (3) COPD (chronic obstructive pulmonary disease) ICD Codes: J44.9 - Chronic obstructive pulmonary disease, unspecified SNOMED: 34446531 (4) UTI (urinary tract infection) ICD Codes: N39.0 - Urinary tract infection, site not specified SNOMED: 55210232 (5) ATN (acute tubular necrosis) ICD Codes: N17.0 - Acute kidney failure with tubular necrosis SNOMED: 82732822 Assessment/Plan add reglan add simethicone ambulate daily exam fu Subjective ROS Limited/Unobtainable: Yes Allergies: Coded Allergies: No Known Allergies (Unverified , 08/10/16) Subjective had BM no n/v Objective Last 24 Hour Vital Signs Date Time Temp Pulse Resp B/P Pulse Ox O2 Delivery O2 Flow Rate FiO2 08/19/16 08:00 98.1 111 20 119/76 96 Room Air 08/19/16 04:00 97.9 101 18 117/83 98 Room Air 08/19/16 01:31 97.2 08/19/16 00:00 98.2 108 20 119/97 97 Room Air 08/18/16 20:00 97.7 65 20 143/68 97 Room Air 08/18/16 16:00 97.2 104 22 122/93 96 Room Air 08/18/16 12:25 97.9 103 18 111/87 97 Room Air Intake and Output 08/18/16 08/19/16 19:00 07:00 Intake Total 1290 ml 1050 ml Balance 1290 ml 1050 ml Intake Oral 390 ml 240 ml IV Total 900 ml 810 ml # Voids 1 5 Laboratory Tests 08/19/16 05:25: White Blood Count 8.7, Red Blood Count 3.56L, Hemoglobin 10.4L, Hematocrit 32.6L , Mean Corpuscular Volume 91, Mean Corpuscular Hemoglobin 29.2, Mean Corpuscular Hemoglobin Concent 32.0, Red Cell Distribution Width 15.8H, Platelet Count 418, Mean Platelet Volume 4.6L, Neutrophils (%) (Auto) 83.7H, Lymphocytes (%) (Auto) 6.4L, Monocytes (%) (Auto) 8.5, Eosinophils (%) (Auto) 0.8, Basophils (%) (Auto) 0.6, Sodium Level 135, Potassium Level 3.7, Chloride Level 94L, Carbon Dioxide Level 20, Anion Gap 21H, Blood Urea Nitrogen 62H, Creatinine 4.1H, Estimat Glomerular Filtration Rate 11.1, Glucose Level 123H, Uric Acid 6.0, Calcium Level 8.5L, Phosphorus Level 4.0, Magnesium Level 1.7, Total Bilirubin 0.6, Aspartate Amino Transf (AST/SGOT) 11, Alanine Aminotransferase (ALT/SGPT) 7, Alkaline Phosphatase 138H, Total Protein 5.6L, Albumin 2.4L, Globulin 3.2, Albumin/Globulin Ratio 0.7L Height (Feet): 5 Height (Inches): 8.00 Weight (Pounds): 127 General Appearance: alert EENT: normal ENT inspection Neck: supple Cardiovascular: normal rate Respiratory/Chest: lungs clear Abdomen: soft, hypoactive bowel sounds, distended Extremities: non-tender VICTOR HUGO BRICENO Aug 19, 2016 10:56
[2016-08-19] MEDS ORDERED: Simethicone 80mg tab ORAL PRN (11:00)
[2016-08-19 12:00] VITALS: BP 117/89
[2016-08-19] MEDS: Metoclopramide 10mg/2ml Inj IVP SCH ×2 (12:32→18:52)
[2016-08-19 16:00] VITALS: BP 130/81
[2016-08-19] MEDS ORDERED: Tubing IV Secondary IV ONE (16:23)
[2016-08-19] MEDS ORDERED: Morphine Sulfate 4mg/ml Inj IVP PRN (17:30)
[2016-08-19] MEDS ORDERED: DOCUSATE SODIU100 M2 ORAL (18:15)
[2016-08-19] MEDS ORDERED: AMOXICILLIN125 MG ORAL (18:15)
[2016-08-19] MEDS ORDERED: HEPARIN SO5000 UNIT2 SUBQ (18:16)
[2016-08-19] MEDS ORDERED: FOLIC ACID1 MG ORAL (18:16)
[2016-08-19] MEDS ORDERED: METOCLOPRAMIDE H5 M1 ORAL (18:17)
[2016-08-19] MEDS ORDERED: LACTULOSE20 GM/301 ORAL (18:17)
[2016-08-19] MEDS ORDERED: MORPHINE 22 MG/1 ML IV (18:18)
[2016-08-19] MEDS ORDERED: FLEET ENEMA133 ML RECTAL (18:18)
[2016-08-19] MEDS ORDERED: NITROGLYCERIN0.4 MG SL (18:19)
[2016-08-19] MEDS ORDERED: ZOFRAN4 M3 ORAL (18:19)
[2016-08-19] MEDS ORDERED: MIRALAX17 G2 ORAL (18:21)
[2016-08-19] MEDS ORDERED: PROTONIX40 MG ORAL (18:21)
[2016-08-19] MEDS ORDERED: RENVELA0.8 GM ORAL (18:21)
[2016-08-19] MEDS ORDERED: SIMETHICONE80 MG ORAL (18:22)
[2016-08-19] MEDS ORDERED: SODIUM CITRATE MC (18:23)
[2016-08-19] MEDS ORDERED: MORPHINE IR15 MG ORAL (19:07)
[2016-08-19 20:00] VITALS: BP 127/88
[2016-08-19] MEDS: Cefepime HCl 500 MG in D5W 55 ML IV SCH (20:03)
--- NOTE | 2016-08-20 16:15 | Discharge Summary ---
Discharge Summary Hospital Course Date of Admission Aug 10, 2016 at 21:31 Date of Discharge Aug 19, 2016 at 20:41 Admitting Diagnosis general weakness, sepsis HPI Kailyn Núñez is a 60 year old female who was admitted on Aug 10, 2016 at 21:31 for General Weakness/Sepsis Hospital Course [id number] Discharge Discharge Disposition Patient was discharged to SNF/Subacute Facility(03) Discharge Diagnoses: Neha Patterson NP Aug 20, 2016 16:15
--- NOTE | 2016-08-21 01:28 | Discharge Summary 2 SIG ---
DATE OF ADMISSION: 08/10/2016 DATE OF DISCHARGE: 08/19/2016 CONSULTANTS: 1. Dave Louis M.D. 2. Mauricio Villalpando M.D. 3. Joni Wetzel M.D. 4. Bryce Evans M.D. BRIEF HOSPITAL COURSE: The patient is a 60-year-old female with history of bilateral hydronephrosis and right ureteral stent. She has a history of cervical CA, for which she underwent chemotherapy and radiation approximately 3 to 4 years ago. 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 She has a long-standing hydronephrosis on both sides with left kidney cortical loss. Initially she had bilateral ureteral stents placed, but eventually access on the left side was lost. The right stent has been changed regularly at [facility]. Dr. Louis was consulted. CAT scan showed right kidney with double-J stent, which appeared to be in good position, there is no hydronephrosis; left kidney showed severe thinning of cortical tissue. On admission the patient's creatinine was 6.6 with elevated WBC and evidence of urinary tract infection. She was followed by infectious disease specialist and was given antibiotic coverage with cefepime and vancomycin, which was later changed to cefepime and ampicillin. She was also followed by Dr. Villalpando. Renal failure was likely acute on chronic and was placed on renal diet. Dr. Evans was consulted. The patient had episodes of acute anemia and received 3 units packed RBC transfusion. Constipation was also treated with Colace, MiraLax, and lactulose. KUB showed distended gas filled small bowel. She was given Reglan and simethicone. She was offered placement of a double-J stent on the right; however, refused and wants procedure done at [facility], where she was regularly followed and received medical care. She was eventually discharged to SNF to complete course of antibiotics with p.o. amoxicillin. FINAL DIAGNOSES: 1. Acute on chronic renal failure. 2. Acute tubular necrosis. 3. 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 4. Ileus. 5. Acute anemia, requiring blood transfusion. 6. Bilateral hydronephrosis, requiring stents. 7. Metabolic acidosis. 8. History of cervical cancer, status post radiation therapy. 9. Chronic obstructive pulmonary disease. 10. Hypokalemia. 11. Elevated CEA. Gorge Sanchez M.D. I have been assigned to dictate discharge summary on this account and I was not involved in the patient's management. Neha Patterson N.P. DR: RIRI JOB#: [id number] CC: DANIEL
== END 2016-08-19 20:41 | DRG 689 ==
LOC: EDBD 20:03 → EMR 21:15 → 2E 21:31 → EDBEDREQSVC 21:55 → EDBEDREQ 08-11 01:08 → 2E 08-11 01:40 → 4W 08-11 20:10
DX: N39.0 Urinary tract infection, site not specified (principal); N17.0 Acute kidney failure with tubular necrosis; E87.2 Acidosis; N13.1 Hydronephrosis with ureteral stricture, not elsewhere classified; K56.7 Ileus, unspecified; J44.9 Chronic obstructive pulmonary disease, unspecified; N18.9 Chronic kidney disease, unspecified; B95.2 Enterococcus as the cause of diseases classified elsewhere; E87.6 Hypokalemia; E86.0 Dehydration; D64.9 Anemia, unspecified; Z85.41 Personal history of malignant neoplasm of cervix uteri
CPT/HCPCS: 36415; 74000; 74176; 76775; 80053; 81003; 82378; 82550; 82607; 82728; 82746; 82977; 83540; 83550; 83605; 83615; 83690; 83735; 84100; 84550; 85007; 85025; 85044; 85060; 85610; 85651; 85730; 86140; 86850; 86900; 86901; 86920; 87040; 87086; 87181; 93005; 94664; J2405; J2765; J8499